=== PATIENT | female | born 1945 | race Caucasian/White ===

== ENCOUNTER → 2018-02-12 03:24 | Outpatient (CLI) | payer MEDICARE, SELFPAY ==
[2018-02-12 11:14] LABS: CREATININE 1.32 mg/dL (0.55-1.02); Cholesterol 198 mg/dL (50-200); Estimated GFR 39.34 (mL/min/1.73m2); HDL Cholesterol 46 mg/dL (40-60); LDL CHOLESTEROL 102 mg/dL (<100); Potassium 4.6 mmol/L (3.5-5.1); TSH (W/Ref FT4) 1.46 uIU/mL (0.358-3.74); Triglyceride 362 mg/dL (30-150)
== END ==
PROVIDERS: PCP Family Medicine; Visit Provider Family Medicine
DX: I10 Essential (primary) hypertension (principal); Z13.9 Encounter for screening, unspecified; R79.89 Other specified abnormal findings of blood chemistry
CPT/HCPCS: 36415; 80061; 83721; 82565; 84132; 84443

== ENCOUNTER → 2018-02-14 11:13 | Outpatient (CLI) | payer MEDICARE, SELFPAY ==
[2018-02-14 13:26] LABS: Abs Immature Grans 0.02 k/cumm (0.0-0.09); Absolute Basophil Count 0.02 k/cumm (0.0-0.2); Absolute Eosinophil Count 0.21 k/cumm (0.0-0.7); Absolute Lymphocyte Count 2.49 k/cumm (1.2-3.4); Absolute Monocyte Count 0.45 k/cumm (0.11-0.7); Absolute Neutrophil Count 5.45 k/cumm (1.2-6.7); Basophils % 0.2; Eosinophils % 2.4; HCT 36.4 % (36.0-46.0); HGB 12.3 g/dL (12.0-15.5); Immature Grans % 0.2; Lymphocytes % 28.8; Mean Corp. HGB Concentration 33.8 g/dL (32.0-36.0); Mean Corpuscular Hemoglobin 31.1 pg (27.0-33.0); Mean Corpuscular Volume 92.2 fL (80-95); Mean Platelet Volume 9.1 fL (8.0-11.0); Monocytes % 5.2; Neutrophils % 63.2; Platelet Count 386 x1000/uL (130-400); RBC 3.95 m/cumm (4.00-5.20); RBC Distribution Width 11.4 % (11.7-14.6); White Blood Cell Count 8.64 k/cumm (4.4-10.8)
[2018-02-14 13:40] LABS: ALT 19 U/L (12-78); AST 19 U/L (15-37); Albumin 4.3 g/dL (3.4-5.0); Alkaline Phosphatase 95 U/L (46-116); Bilirubin, Direct 0.12 mg/dL (0.00-0.20); Bilirubin, Total 0.3 mg/dL (0.2-1.0); C-Reactive Protein 0.28 mg/dL (0.0-0.3); Total Protein 7.3 g/dL (6.4-8.2)
[2018-02-14 14:29] LABS: ESR 20 MM/HR (0-30)
== END ==
PROVIDERS: PCP Family Medicine; Visit Provider Family Medicine
DX: R53.82 Chronic fatigue, unspecified (principal)
CPT/HCPCS: 36415; 80076; 85652; 85025; 86140

== ENCOUNTER 2019-02-26 01:43 | Outpatient (CLI) | payer OTHER, SELFPAY ==
[2019-02-26 13:07] LABS: CREATININE 1.12 mg/dL (0.55-1.02); Estimated GFR 47.43 (mL/min/1.73m2); Potassium 4.6 mmol/L (3.5-5.1); TSH (W/Ref FT4) 2.34 uIU/mL (0.36-3.74)
== END 2019-02-26 02:03 ==
PROVIDERS: PCP Family Medicine; Visit Provider Family Medicine
DX: I10 Essential (primary) hypertension (principal); E03.9 Hypothyroidism, unspecified
CPT/HCPCS: 36415; 82565; 84132; 84443

== ENCOUNTER 2019-10-23 16:15 | Emergency (ER) | payer OTHER, SELFPAY ==
[2019-10-23] VITALS (12 sets, daily range): BP systolic 130–157; BP diastolic 63–130; PULSE 75–95; RESP 12–21; TEMP 36.8–37.1; O2SAT 93–98
--- NOTE | 2019-10-23 16:30 | DI.CT_ITS ---
EXAM: CT CHEST PE CTA CLINICAL HISTORY: shortness of breath. TECHNIQUE: Imaging Protocol: Axial CT angiography was performed with multi-slice acquisition and mu lti-planar and/or 3D reconstructions. CONTRAST MATERIAL: Intravenous: Omnipaque 350 Contrast volume:67 mL COMPARISON: CHEST 2 VIEWS PA,LAT from 02/18/2014 FINDINGS: Pulmonary Arteries: No evidence of filling defect to suggest pulmonary emboli. Tracheobronchial tree: Patent where visualized. Mediastinum and Mary Jo: No dominant adenopathy or fluid collection. Pulmonary parenchyma: No focal consolidation. 6 mm solid pulmonary nodule seen in the right upper lo be (series 10, image 194), ground-glass 4 mm nodule seen in the right lower lobe (series 10, image 26 4). No architectural distortion. Pleura: No effusion or pneumothorax. Heart: The heart is not dilated. No coronary artery calcifications are seen. No pericardial effusion. Aorta: Thoracic aorta non-dilated. No evidence of dissection. Upper abdomen: 1.5 cm cyst in the superior pole of the right kidney. Bones: Old T12 compression deformity which appears stable compared to the chest x-ray from 02/18/2014. Degenerative changes throughout the thoracic spine. IMPRESSION: 1. No evidence of pulmonary embolus, thoracic aortic dissection or aneurysm. 2. Scattered pulmonary nodules measuring less than 6 mm. Follow-up non contrast CT scan in 6-12 tanner hs is recommended per the Fleischner society guidelines. DATA REPOSITORY: All CT scans at this facility are submitted to the National Radiology Data Registry (NRDR) Dose Index Registry (DIR) with the [employer] (ACR). RADIATION OPTIMIZATION: All CT scans at this facility use at least one of these dose optimization te chniques: automated exposure control; mA and/or kV adjustment per patient size (includes targeted exa ms where dose is matched to clinical indication); or iterative reconstruction.
--- NOTE | 2019-10-23 16:35 | ED.GENADUL_ITS ---
Discharge Plan Disposition Patient Disposition: HOME Condition: Stable Discharge Details Chief Complaint: SOB Clinical Impression: Bronchospasm, Pulmonary nodule, Shortness of breath, Hypokalemia Primary Care Provider: Andrzej You ED Provider: Farhan Cohen Home Meds and New Rx's Prescriptions: New prednisone 20 mg tablet 60 mg PO DAILY 4 Days Qty: 12 RF: 0 Continued carbidopa-levodopa 25-100 mg tablet 1 tab PO BID Qty: 180 RF: 3 ipratropium bromide 0.02 % solution 2.5 ml IH QID PRN (Reason: shortness of breath or wheezing) Qty: 120 RF: 2 albuterol sulfate 2.5 mg /3 mL (0.083 %) solution for nebulization 2.5 mg Inhalation Q 4 HR PRN Qty: 120 RF: 2 triamcinolone acetonide 15 GM cream 15 applic Topical BID Qty: 60 RF: 3 levothyroxine 88 mcg tablet 88 mcg PO DAILY Qty: 90 RF: 4 lisinopril-hydrochlorothiazide 20-25 mg tablet 1 tab PO DAILY Qty: 90 RF: 4 simvastatin 40 mg tablet 40 mg PO HS Qty: 90 RF: 4 fluoxetine [Prozac] 20 mg capsule 20 mg PO DAILY Qty: 90 RF: 4 doxycycline hyclate 100 mg tablet,delayed release (DR/EC) 100 mg PO BID Qty: 20 RF: 0 Discharge Instructions Instructions: Asthma (ED), Hypokalemia (ED) Additional Instructions: your cat scan showed pulmonary nodules, you should advised your primary care provider of this as you will need follow up imaging if you feel significantly more ill, more short of breath or high fevers return to the emergency department follow up with your primary care provider if not improved within a week self isolate until your covid19 (coronavirus test) comes back Medical Decision Making 74 yo female with hx of hld, asthma, who comes in with one month of feeling short of breath, cough and wheezing despite being on nebulizer treatments and doxycycline. Denies any travel, sick contacts or fevers. No chest pain or shortness of breath. She has wheezing in all lung payne on exam but is speaking in full sentences in no distress. Suspect asthma exacerbation but given one month of symptoms without improvement will evaluate for possible PE as well score is moderate. Given the cough and shortness of breath feel she should also be evaluated for covid19 and influenza. Has no chest pain or pressure so doubt PE. pt feeling much better and only has midl apical wheezing bilaterally and still has stable vital signs. CTA negative other than nodules and labs show hypokal emia otherwise unremarkable. Will prescribe short course of prednisone, return precautions given Differential Diagnosis Differential Diagnosis: asthma, covid19, influenza, pna, PE Medical Records Medical records reviewed: Yes I reviewed the patient's medical records. Imaging Data Radiologic Study: Attestation: I personally reviewed and interpreted this imaging study as follows: Imaging: CT Scan Radiologist's impression: 1. No acute abnormality in the chest. No pulmonary embolism. 2. Scattered solid and subsolid pulmonary nodules measuring up to 6 mm in the right upper lobe. Recommend follow-up noncontrast CT in 6-12 months per Fleischner society guidelines Lab Data Lab results reviewed: Yes I reviewed the patient's lab results. ECG Data Attestation: I personally reviewed and interpreted this ECG (s) as follows: Prior ECG tracings: not available for review Interpretation: sinus rhythm, rate of 87, pr 184, no acute st t wave ischemic findings HPI General Mode of arrival: ambulatory . Date/Time Provider Initiated Documentation: 10/23/19 16:16 . Limitations to Documentation: no limitations . Information obtained by: patient . History of Present Illness 74 year old F presents to the emergency department with the chief complaint of shortness of breath, described as moderate, and it has been constant. No relieving factors improve symptom(s), No exacerbating factors reported . Patient did receive the following treatments prior to arrival, none Related Data Home Medications Medication Instructions Recorded Confirmed triamcinolone acetonide 15 applic TOPICAL BID #60 g 02/14/18 10/23/19 carbidopa 25 mg-levodopa 100 mg 1 tab PO BID #180 tab-cap 03/19/19 10/23/19 tablet levothyroxine 88 mcg tablet 88 mcg PO DAILY #90 tab-cap 10/06/19 10/23/19 lisinopril 20 1 tab PO DAILY #90 tab-cap 10/06/19 10/23/19 mg-hydrochlorothiazide 25 mg tablet simvastatin 40 mg tablet 40 mg PO HS #90 tab-cap 10/06/19 10/23/19 fluoxetine 20 mg capsule 20 mg PO DAILY #90 tab-cap 10/08/19 10/23/19 doxycycline hyclate 100 mg 100 mg PO BID #20 tab 10/13/19 10/23/19 tablet,delayed release albuterol sulfate 2.5 mg INHALATION Q 4 HR PRN #120 10/22/19 10/23/19 vial ipratropium bromide 0.02 % 2.5 ml IH QID PRN #120 vial 10/22/19 10/23/19 solution for inhalation prednisone 60 mg PO DAILY 4 Days #12 tab 10/23/19 Previous Rx's Medication Instructions Recorded carbidopa 25 mg-levodopa 100 mg 1 tab PO BID #180 tab-cap 03/19/19 tablet levothyroxine 88 mcg tablet 88 mcg PO DAILY #90 tab-cap 10/06/19 lisinopril 20 1 tab PO DAILY #90 tab-cap 10/06/19 mg-hydrochlorothiazide 25 mg tablet simvastatin 40 mg tablet 40 mg PO HS #90 tab-cap 10/06/19 fluoxetine 20 mg capsule 20 mg PO DAILY #90 tab-cap 10/08/19 doxycycline hyclate 100 mg 100 mg PO BID #20 tab 10/13/19 tablet,delayed release albuterol sulfate 2.5 mg INHALATION Q 4 HR PRN #120 10/22/19 vial ipratropium bromide 0.02 % 2.5 ml IH QID PRN #120 vial 10/22/19 solution for inhalation prednisone 60 mg PO DAILY 4 Days #12 tab 10/23/19 Allergies Allergy/AdvReac Type Severity Reaction Status Date / Time No Known Allergies Allergy Unverified 10/23/19 16:26 General Stated Complaint: SOB AMBER: 3 Review of Systems All systems reviewed & are unremarkable except as noted in HPI and below Constitutional Constitutional: Denies chills, Denies fever(s) and Denies weakness Cardiovascular Cardiovascular: Denies chest pain Gastrointestinal Gastrointestinal: Denies abdominal pain, Denies nausea and Denies vomiting Musculoskeletal Musculoskeletal: Denies joint swelling Neurologic Neurologic: Denies weakness Psychiatric Psychiatric: Denies depression [facility] Medical History (Updated 10/23/19 @ 17:32 by Farhan Cohen MD) Bronchospasm (Acute) Cough present for greater than 3 weeks (Acute) Idiopathic Parkinson's disease (Acute) Surgical History Appendectomy Cholecystectomy Hysterectomy, Laproscopic partial; fibroid knee repair left nasal polypectomy x 2 PROCEDURES SPINAL STRUCT REPAIR NEC spinal stenosis Stent placement Social History Smoking/Tobacco Use Status: Former Tobacco Use Alcohol Intake: never Substance use type: does not use Do you feel safe at home: Yes Do you feel safe in your relationship?: Yes Exam Const General: no acute distress Orientation: alert HENMT Head: normal to inspection Ears: external ears normal General nose exam: external nose normal Mouth: moist mucous membranes Eyes General: appearance normal, both eyes and all related structures Neck Neck: normal visual inspection Resp Effort & Inspection: normal respiratory effort, able to speak in complete sentences and audible wheezes Cardio Rate: regular rate Skin General skin exam: no rashes or lesions noted Neuro General: patient alert and patient oriented x3 Extrem General: normal to inspection Psych Mental Status: mental status grossly normal Course Vital Signs Vital signs: Vital Signs Temperature 37.1 C 10/23/19 16:22 Pulse 95 H 10/23/19 16:22 Respiratory Rate 16 10/23/19 16:22 Blood Pressure 149/86 H 10/23/19 16:22 Pulse Oximetry 95 10/23/19 16:22 Temperature 37.1 C 10/23/19 16:22 Temperature Source Tympanic 10/23/19 16:22 Pulse 95 H 10/23/19 16:22 Respiratory Rate 16 10/23/19 16:26 Respiratory Effort 10/23/19 16:26 Respiratory Depth Normal 10/23/19 16:26 Respiratory Pattern Irregular 10/23/19 16:26 Blood Pressure 149/86 H 10/23/19 16:22 Pulse Oximetry 95 10/23/19 16:22 Oxygen Delivery Method Room Air 10/23/19 16:22 Oxygen Flow Rate 0 10/23/19 16:22 Pain Level 0 10/23/19 16:22
[2019-10-23 17:00] LABS: Abs Immature Grans 0.01 k/cumm (0.0-0.09); Absolute Basophil Count 0.05 k/cumm (0.0-0.2); Absolute Eosinophil Count 1.32 k/cumm (0.0-0.7); Absolute Lymphocyte Count 3.07 k/cumm (1.2-3.4); Absolute Monocyte Count 0.56 k/cumm (0.11-0.7); Absolute Neutrophil Count 4.38 k/cumm (1.2-6.7); Basophils % 0.5; Eosinophils % 14.1; HCT 34.2 % (36.0-46.0); HGB 11.7 g/dL (12.0-15.5); Immature Grans % 0.1 %; Lymphocytes % 32.7; Mean Corp. HGB Concentration 34.2 g/dL (32.0-36.0); Mean Corpuscular Hemoglobin 30.7 pg (27.0-33.0); Mean Corpuscular Volume 89.8 fL (80-95); Mean Platelet Volume 9.1 fL (8.0-11.0); Neutrophils % 46.6; Platelet Count 339 x1000/uL (130-400); RBC 3.81 m/cumm (4.00-5.20); RBC Distribution Width 12.1 % (11.7-14.6); White Blood Cell Count 9.39 k/cumm (4.4-10.8)
[2019-10-23 17:14] LABS: ALT 18 U/L (14-59); AST 18 U/L (15-37); Albumin 3.9 g/dL (3.4-5.0); Alkaline Phosphatase 89 U/L (46-116); Anion Gap 13.1 mmol/L (3-11); BUN 18 mg/dL (7-18); Bilirubin, Total 0.4 mg/dL (0.2-1.0); CO2 21.9 mmol/L (21.0-32.0); CREATININE 1.13 mg/dL (0.55-1.02); Chloride 101 mmol/L (98-107); Estimated GFR 46.82 (mL/min/1.73m2); Glucose 121 mg/dL (74-106); Magnesium 1.7 mg/dL (1.8-2.4); Sodium 136 mmol/L (136-145); Total Protein 6.9 g/dL (6.4-8.2)
[2019-10-23 17:17] LABS: NT-proBNP 335 pg/mL (<300); Troponin I < 0.05 ng/Ml (<0.06)
[2019-10-23 17:23] LABS: Procalcitonin < 0.1 ng/mL
--- NOTE | 2019-10-23 17:29 | DI.VRAD_ITS ---
PROCEDURE INFORMATION: Exam: CT Angiography Chest With Contrast Exam date and time: 10/23/2019 5:04 PM Age: 74 years old Clinical indication: Other: SOB TECHNIQUE: Imaging protocol: Computed tomographic angiography of the chest with intravenous contrast. 3D rendering: MIP and/or 3D reconstructed images were created by the technologist. Radiation optimization: All CT scans at this facility use at least one of these dose optimization techniques: automated exposure control; mA and/or kV adjustment per patient size (includes targeted exams where dose is matched to clinical indication); or iterative reconstruction. Contrast material: OMNIPAQUE 350; Contrast volume: 67 ml; Contrast route: IV; COMPARISON: CR CHEST 2 VIEWS PA,LAT 02/18/2014 8:42 AM FINDINGS: Pulmonary arteries: No pulmonary embolism. Aorta: The aorta is normal. Lungs: 6 mm solid pulmonary nodule in the central right upper lobe (series 10, image 194). Few additional scattered solid and subsolid nodules including 3 mm right upper lobe pulmonary nodule and 4 mm right lower lobe ground-glass nodule (series 10 image 172 and 264 respectively). Lungs are otherwise clear. Pleural space: Unremarkable. No pneumothorax. No pleural effusion. Heart: Unremarkable. No cardiomegaly. No pericardial effusion. Lymph nodes: Unremarkable. No enlarged lymph nodes. Bones/joints: T12 compression deformity with 3-4 mm bony retropulsion is grossly unchanged from prior 02/18/2014 radiograph when allowing for differences in technique. Soft tissues: Unremarkable. IMPRESSION: 1. No acute abnormality in the chest. No pulmonary embolism. 2. Scattered solid and subsolid pulmonary nodules measuring up to 6 mm in the right upper lobe. Recommend follow-up noncontrast CT in 6-12 months per Fleischner society guidelines. Dictated and Authenticated by: Luis Medina MD. Ordering:KAM Real MD
[2019-10-24 14:52] LABS: COVID-19 RT-PCR Result Negative (Negative)
== END 2019-10-23 18:10 | disposition home or self-care (01) ==
PROVIDERS: Emergency Provider Emergency Medicine; PCP Family Medicine
DX: J98.01 Acute bronchospasm (principal); R91.8 Other nonspecific abnormal finding of lung field; E87.6 Hypokalemia; G20 Parkinson's disease
CPT/HCPCS: 71275; 80053; 84145; 87449; 93005; 99284; U0003; 83735; 83880; 84484; 85025; 93010

== ENCOUNTER 2020-04-06 09:16 | Outpatient (CLI) | payer OTHER, SELFPAY ==
[2020-04-06 12:31] LABS: HCT 39.4 % (36.0-46.0); MCH 30.2 pg (27.0-33.0); MCV 91.4 fL (80-95); MPV 9.7 fL (8.0-11.0); Platelet Count 336 10^3/uL (130-400); RBC 4.31 10^6/uL (3.93-5.22); RDW 11.4 % (11.7-14.6); RDW-SD 38.2 fL; WBC 9.08 10^3/uL (4.4-10.8)
[2020-04-06 12:32] LABS: Anion Gap 12.1 mmol/L (3-11); BUN 18 mg/dL (7-18); CO2 24.9 mmol/L (21.0-32.0); CREATININE 1.27 mg/dL (0.55-1.02); Calcium 9.7 mg/dL (8.5-10.1); Chloride 102 mmol/L (98-107); Glucose 91 mg/dL (74-106); Potassium 4.2 mmol/L (3.5-5.1); Sodium 139 mmol/L (136-145)
== END 2020-04-06 09:36 ==
PROVIDERS: PCP Family Medicine; Visit Provider Family Medicine
DX: E87.1 Hypo-osmolality and hyponatremia (principal); R53.83 Other fatigue
CPT/HCPCS: 80048; 85027

== ENCOUNTER 2020-08-13 08:33 | Outpatient (CLI) | payer OTHER, SELFPAY ==
[2020-08-13 12:53] LABS: Abs Immature Grans 0.02 10^3/uL (0.0-0.06); Absolute Basophil Count 0.04 10^3/uL (0.0-0.2); Absolute Eosinophil Count 0.31 10^3/uL (0.0-0.7); Absolute Lymphocyte Count 2.03 10^3/uL (1.2-3.4); Absolute Monocyte Count 0.47 10^3/uL (0.1-0.8); Absolute Neutrophil Count 5.91 10^3/uL (1.2-6.7); Basophils % 0.5; Eosinophils % 3.5; HCT 40.9 % (36.0-46.0); HGB 13.7 g/dL (11.2-15.7); Immature Grans % 0.2; Lymphocytes % 23.1; MCH 30.7 pg (27.0-33.0); MCHC 33.5 % (32.0-36.0); MCV 91.7 fL (80-95); MPV 9.6 fL (8.0-11.0); Monocytes % 5.4; Neutrophils % 67.3; Nucleated RBC 0 %; Platelet Count 373 10^3/uL (130-400); RBC 4.46 10^6/uL (3.93-5.22); RDW 11.2 % (11.7-14.6); RDW-SD 37.4 fL; WBC 8.78 10^3/uL (4.4-10.8)
[2020-08-13 13:01] LABS: TSH (W/Ref FT4) 0.65 uIU/mL (0.36-3.74)
== END 2020-08-13 08:34 | disposition home or self-care (01) ==
LOC: LOS 08:33
PROVIDERS: PCP Family Medicine; Visit Provider Family Medicine
DX: E03.9 Hypothyroidism, unspecified (principal); R53.83 Other fatigue
CPT/HCPCS: 36415; 84443; 85025

== ENCOUNTER 2020-09-07 01:35 | Outpatient (CLI) | payer OTHER, SELFPAY ==
--- NOTE | 2020-09-07 06:45 | DI.CT_ITS ---
EXAM: CT CHEST WO CLINICAL HISTORY: reassess lung nodules seen 10/[address],r91.1 TECHNIQUE: CT examination of the chest was performed without contrast administration. COMPARISON: CR CHEST 2 VIEWS PA,LAT from 02/18/[address] CHEST PE CTA from 10/23/2019 FINDINGS: Images obtained through the upper abdomen show unremarkable appearance of visualized portions of the liver and spleen. Note is made of prior cholecystectomy and a nonobstructing left renal calculus. There is no mediastinal or hilar adenopathy. Mediastinal vascular structures appear intact by noncon trast criteria. Tracheobronchial tree appears intact. No pleural effusion or pleural-based mass. The current examination is compared with prior chest CT October 2019. There are innumerable new areas of scattered pulmonary ground-glass and consolidative opacities seen in all pulmonary lobes which wer e not present on prior scan. A couple of 6 millimeter right upper lobe intrapulmonary nodules seen o n the prior study are unchanged. IMPRESSION: Innumerable new randomly distributed ground-glass and consolidative pulmonary opacities, differential diagnosis includes infectious process or inflammatory process with metastatic neoplasm being less li colette. Please correlate clinically. RADIATION DOSE DELIVERED: LINK-TO-SR Total DLP 601.82mGy.cm Total DLP
--- NOTE | 2020-09-07 06:45 | DI.MAMMO_ITS ---
EXAM: MG MAMMO DIAGNOSTIC BI CLINICAL HISTORY: left UOQ breast mass x 5 weeks,n63.20 TECHNIQUE: Mammograms were interpreted according to the usual protocol including computer analysis w [employer] CAD system, tomosynthesis and C-view imaging. COMPARISON: FINDINGS: Mammogram with additional mammographic views of the left breast and left breast ultrasound are interp reted in conjunction. Patient has a palpable area of abnormality of the upper outer quadrant of the left breast which is near the skin surface. Mammogram does not show a convincing mass, either associ ated with the palpable area in question or elsewhere in either breast. The breasts are of moderate d ensity. No significant change from prior mammogram of 2014. No clumped microcalcification identified in either breast. Breast ultrasound of the upper outer quadrant of the left breast shows mildly hyperechoic well-circum scribed 7 millimeter nodule corresponding to the palpable abnormality, this may represent a small lym ph node. Other etiologies not entirely excluded. Malignancy not absolutely excluded but unlikely. IMPRESSION: No specific evidence of malignancy at this time. A follow-up unilateral left breast mammogram and le ft breast ultrasound is recommended in 6 months to re-evaluate the probably benign intra mammary nodu le as described above. BI-RADS Category 3 - 6 month - Probably Benign Finding: Recommend follow-up mammography and ultrasoun d in 6 months Breast Density - Category B - Scattered areas of fibroglandular density
== END 2020-09-07 01:55 ==
PROVIDERS: PCP Family Medicine; Visit Provider Family Medicine
DX: R91.8 Other nonspecific abnormal finding of lung field (principal); N63.21 Unspecified lump in the left breast, upper outer quadrant
CPT/HCPCS: 71250; 76642; 77062; 77066; G0279

== ENCOUNTER 2020-10-18 13:37 | Outpatient (REF) | payer OTHER, SELFPAY ==
[2020-11-15 09:33] LABS: Fungus Smear No Fungi Seen
== END 2020-10-18 13:38 | disposition home or self-care (01) ==
LOC: LBN 13:37
PROVIDERS: PCP Family Medicine; Visit Provider Family Medicine
DX: R91.8 Other nonspecific abnormal finding of lung field (principal); R05 Cough; R09.3 Abnormal sputum
CPT/HCPCS: 87102; 87116; 87206; 87070; 87205

== ENCOUNTER 2021-01-19 03:24 | Outpatient (CLI) | payer OTHER, SELFPAY ==
[2021-01-19 12:20] LABS: ESR 13 mm/hr (0-30)
[2021-01-19 12:27] LABS: Anion Gap 11.3 mmol/L (3-11); BUN 21 mg/dL (7-18); C-Reactive Protein 0.29 mg/dL (0.0-0.3); CO2 25.7 mmol/L (21.0-32.0); CREATININE 1.2 mg/dL (0.55-1.02); Calcium 9.3 mg/dL (8.5-10.1); Chloride 105 mmol/L (98-107); Estimated GFR 43.56 (mL/min/1.73m2); Glucose 89 mg/dL (74-106); Potassium 4.4 mmol/L (3.5-5.1); Sodium 142 mmol/L (136-145)
[2021-01-20 15:06] LABS: ANA Interpretation Positive (Negative); ANA Titer Pattern 1:320 Homogeneous
== END 2021-01-19 03:25 | disposition home or self-care (01) ==
LOC: LOS 03:24
PROVIDERS: PCP Family Medicine; Visit Provider Family Medicine
DX: E87.1 Hypo-osmolality and hyponatremia (principal); M25.59 Pain in other specified joint; R41.89 Other symptoms and signs involving cognitive functions and awareness; M19.90 Unspecified osteoarthritis, unspecified site
CPT/HCPCS: 36415; 80048; 85652; 86038; 86140

== ENCOUNTER 2021-01-25 02:20 | Outpatient (CLI) | payer OTHER, SELFPAY ==
[2021-01-25 21:41] LABS: Rheumatoid Factor 15.8 IU/mL (<12.0)
[2021-01-26 09:14] LABS: Cyclic Citrullinated Peptide <2.5 U/mL (<5.0)
[2021-01-26 10:21] LABS: IgA 159 mg/dL (85-499); IgG 875 mg/dL (610-1,616); IgM 40 mg/dL (35-242)
[2021-01-26 12:42] LABS: IgE 8 IU/mL (<158)
[2021-01-27 11:00] LABS: dsDNA Ab, IgG 12.5 IU/mL (<30.0)
[2021-01-27 12:19] LABS: SS-B (La) Ab, IgG 1.3 Units (<20.0)
[2021-01-27 14:42] LABS: Scl 70 Antibodies, IgG <0.2 U
[2021-01-31 11:38] LABS: Misc Referral (MAYO) See Comments
[2021-02-04 00:26] LABS: Anti-IgA <99 U/mL (<99)
[2021-02-14 12:16] LABS: Misc Referral (MAYO) See Comments
== END 2021-01-25 02:21 | disposition home or self-care (01) ==
LOC: LOS 02:20
PROVIDERS: PCP Family Medicine; Visit Provider Student in an Organized Health Care Education/Training Program
DX: J84.9 Interstitial pulmonary disease, unspecified (principal); R76.8 Other specified abnormal immunological findings in serum
CPT/HCPCS: 36415; 82784; 83516; 83520; 86200; 86235; 86617; 87449; 82785; 82787; 86225; 86431; 87385

== ENCOUNTER 2021-02-01 02:12 | Outpatient (CLI) | payer OTHER, SELFPAY ==
--- NOTE | 2021-02-01 07:30 | DI.CT_ITS ---
Exam(s) CT CHEST WO EXAM: CT CHEST WO CLINICAL HISTORY: Follow up for bilateral GGO on last chest CT,interstitial lung disease.j84.. TECHNIQUE: Imaging protocol: Axial computed tomography images were obtained and coronal and sagittal reformatted images were created and reviewed. COMPARISON: CT CT CHEST WO from 09/07/2020 FINDINGS: Tracheobronchial tree: Patent where visualized. Pulmonary parenchyma: There are persistent diffuse bilateral ground-glass opacities in the lungs. Th e findings appears stable. No new focal areas of consolidation are seen. No architectural distortio n. Mediastinum and Mary Jo: No dominant adenopathy or fluid collection. Pleura: No effusion or pneumothorax. Heart: The heart is not dilated. No coronary artery calcifications are seen. No pericardial effusion. Calcification of the mitral annulus. Aorta: Thoracic aorta non-dilated. Mild atherosclerosis. Upper abdomen: Status post cholecystectomy. Nonobstructing 3 mm left renal stone. Stable cyst in t he upper pole of the right kidney. No follow-up is recommended. Lymph nodes: Within normal limits. Soft tissues: Unremarkable. Bones:Degenerative changes in the spine. Old T12 compression fracture deformity. IMPRESSION: Stable bilateral diffuse ground-glass opacities in the lungs. Differential considerations include op portunistic and non operative 10 is sick infectious processes, chronic interstitial disease such as i nterstitial pneumonia, hypersensitivity pneumonitis or neoplasm. RADIATION DOSE DELIVERED: 535.03mGy.cm Total DLP 535.03mGy.cm Total DLP DATA REPOSITORY: All CT scans at this facility are submitted to the National Radiology Data Registry (NRDR) Dose Index Registry (DIR) with the [employer] (ACR). RADIATION OPTIMIZATION: All CT scans at this facility use at least one of these dose optimization te chniques: automated exposure control; mA and/or kV adjustment per patient size (includes targeted exa ms where dose is matched to clinical indication); or iterative reconstruction.
== END 2021-02-01 02:32 ==
PROVIDERS: PCP Family Medicine; Visit Provider Student in an Organized Health Care Education/Training Program
DX: R91.8 Other nonspecific abnormal finding of lung field (principal); J84.9 Interstitial pulmonary disease, unspecified
CPT/HCPCS: 71250

== ENCOUNTER 2021-02-07 02:04 | Outpatient (CLI) | payer OTHER, SELFPAY ==
[2021-02-07 12:24] LABS: Source Nasal/Nares
[2021-02-07 15:07] LABS: COVID-19 PCR Negative (Negative)
== END 2021-02-07 02:05 | disposition home or self-care (01) ==
LOC: LBO 02:04
PROVIDERS: PCP Family Medicine; Visit Provider Student in an Organized Health Care Education/Training Program
DX: Z20.822 Contact with and (suspected) exposure to COVID-19 (principal); Z01.818 Encounter for other preprocedural examination
CPT/HCPCS: 87635

== ENCOUNTER 2021-02-09 07:19 | Day surgery (SDC) | payer OTHER, SELFPAY ==
[2021-02-09] VITALS (10 sets, daily range): BP systolic 120–161; BP diastolic 54–82; PULSE 72–84; RESP 13–23; TEMP 36.1–36.5; O2SAT 93–99; BMI 30.4
--- NOTE | 2021-02-09 06:36 | ANES.PREOP_ITS ---
General Info Date of Service Date Performed: 02/09/21 Height: 5 ft 1 in Weight: 73.085 kg Body Mass Index (BMI): 30.4 Surgical Procedure: Operation Date: 02/09/21 09:10 Proposed Procedures Side Surgeon p Bronchoscopy Tara Yanez MD Meds Allergies and Home Medications Allergies Allergy/AdvReac Type Severity Reaction Status Date / Time prednisone AdvReac pounding Verified 02/09/21 07:30 headache Home Medication Medication Instructions Recorded albuterol sulfate 2.5 mg INHALATION Q 4 HR PRN #120 10/22/19 vial ipratropium bromide 0.02 % 2.5 ml IH QID PRN #120 vial 10/22/19 solution for inhalation budesonide 0.5 mg/2 mL suspension 0.5 mg IH BID #360 ml 11/25/19 for nebulization acetaminophen 300 mg-codeine 30 mg 1 tab PO TID PRN #10 tab-cap 04/06/20 tablet levocetirizine 5 mg tablet 5 mg PO DAILY PRN #90 tab 06/01/20 carbidopa 25 mg-levodopa 100 mg 1 tab PO QHS #90 tab-cap 08/13/20 tablet fluoxetine 20 mg capsule 20 mg PO DAILY #90 tab-cap 08/13/20 fluticasone propionate 50 1 spray INTRANASAL Q12H PRN ml 08/13/20 mcg/actuation nasal spray,suspension triamcinolone acetonide 0.1 % 15 applic TOPICAL BID PRN #60 g 08/13/20 topical cream levothyroxine 88 mcg tablet 88 mcg PO DAILY #90 tab-cap 08/16/20 lisinopril 20 1 tab PO DAILY #90 tab-cap 11/17/20 mg-hydrochlorothiazide 25 mg tablet simvastatin 40 mg tablet 40 mg PO HS #90 tab-cap 11/17/20 Current Visit Medications: Current Medications Generic Name Dose Route Start Last Admin Trade Name Freq PRN Reason Stop Dose Admin Ringer's Solution 1,000 mls @ 30 mls/hr 02/09/21 06:00 IV 03/10/21 23:59 INFUSION JANETTE IV Miscellaneous Supplies 1 each 02/09/21 06:00 Iv Access IV 03/10/21 23:59 DIRECTED JANETTE Sodium Chloride 0 ml 02/09/21 06:00 Normal Saline Flush 10 Ml Syr IV 03/10/21 23:59 PRN PRN Sodium Chloride 0 ml 02/09/21 06:00 Normal Saline 10 Ml Vial IJ 03/10/21 23:59 DIRECTED PRN Sterile Water 0 ml 02/09/21 06:00 Water,Injection,Sterile 10 Ml Vial IJ 03/10/21 23:59 DIRECTED PRN PFSH Active Problems Active Problems: Problem Status Onset Code Breast lump in upper outer quadrant N63.0 Facial cellulitis L03.211 Facial rash R21 [address] R93.89 Asthma J45.909 ILD (interstitial lung disease) J84.9 Arthralgia M25.50 Chronic pain syndrome 04/10/17 G89.4 Fatigue R53.83 Nasal congestion R09.81 Periorbital dermatitis L30.9 Night sweats R61 Left breast lump N63.20 Ground glass opacity present on imaging of lung R91.8 Lung nodules R91.8 Bronchospasm J98.01 Cough present for greater than 3 weeks R05 Idiopathic Parkinson's disease G20 Medical History Medical History Arthralgia Bronchospasm Chronic pain syndrome (04/10/17) Cough present for greater than 3 weeks Fatigue Ground glass opacity present on imaging of lung Idiopathic Parkinson's disease Left breast lump Lung nodules Nasal congestion Night sweats Periorbital dermatitis Surgical History Surgical History Appendectomy Cholecystectomy History of sinus surgery Per pt. stated she doesn't know what it is called but stated they went in and made windows, it was one in the early Hysterectomy, Laproscopic partial; fibroid knee repair left nasal polypectomy x 2 PROCEDURES SPINAL STRUCT REPAIR NEC spinal stenosis Stent placement per pt. denies Tobacco Smoking/Tobacco Use Status: Former Tobacco Use Passive smoking exposure: Yes Alcohol Alcohol Intake: never Substance Use Substance use: Never Substance use type: does not use Vital Signs and Lab Results Vital Signs Most Recent Vital Signs in EMR: Temp Pulse Resp BP Pulse Ox 36.3 C L 78 18 122/82 97 02/09/21 07:30 02/09/21 07:30 02/09/21 07:30 02/09/21 07:30 02/09/21 07:30 Lab Results Blood Type / Crossmatch: No Data to Display Complete Blood Count: No Data to Display Complete Metabolic Panel: Sodium Level 142 mmol/L (136-145) 01/19/21 08:42 01/19/21 Potassium Level 4.4 mmol/L (3.5-5.1) 01/19/21 08:42 01/19/21 Chloride Level 105 mmol/L (98-107) 01/19/21 08:42 01/19/21 Carbon Dioxide Level 25.7 mmol/L (21.0-32.0) 01/19/21 08:42 01/19/21 Blood Urea Nitrogen 21 mg/dL (7-18) H 01/19/21 08:42 01/19/21 Creatinine 1.2 mg/dL (0.55-1.02) H 01/19/21 08:42 01/19/21 Estimated GFR/1.73 m2 43.56 (mL/min/1.73m2) 01/19/21 08:42 01/19/21 Calcium Level 9.3 mg/dL (8.5-10.1) 01/19/21 08:42 01/19/21 Glucose Level 89 mg/dL (74-106) 01/19/21 08:42 01/19/21 C-Reactive Protein 0.29 mg/dL (0.0-0.3) 01/19/21 08:42 01/19/21 Liver Function Panel: No Data to Display Coagulation Panel: No Data to Display Cardiac Panel: No Data to Display Arterial Blood Gas: No Data to Display Venous Blood Gas: No Data to Display Pancreas Panel: No Data to Display Thyroid Panel: No Data to Display Infectious Disease: Coronavirus (COVID-19)(PCR) Negative (Negative) 02/07/21 09:09 02/07/21 Coronavirus 2019 Source Nasal/Nares 02/07/21 09:09 02/07/21 Blood Cultures: 2 No Data to Display Toxicology Panel: No Data to Display Imaging and Studies Imaging and Studies CT Summary: 09/2020: stable bilateral diffuse ground glass opacities in the lungs. Anesthesia Assessment and Plan Anesthesia History Personal History: No History of Anesthesia Complications Family History: No Family History of Anesthesia Complications Exercise Tolerance Exercise Tolerance: Metabolic Equivalents>4 Cardiac & Pulmonary Exam Cardiac Exam: Normal S1/S2 Heart Sounds Pulmonary Exam: Clear Bilateral Breath Sounds Airway Exam Known Difficult Airway: No Mallampati Class: 3 Mouth Opening: Normal (> 3cm) Thyromental Distance: Greater than 3 cm Neck Range of Motion: Limited ROM Neck Circumference: Normal Teeth Condition: Normal Dentition and Other (prominent front teeth) ASA Classification ASA Score: ASA 3 Emergency Case?: No NPO Status NPO Status: NPO Clears >2 hours, Solids >8 hours Anesthesia Plan Resuscitation Status: Full Code Anesthesia Technique: General Anesthesia Airway Planned: Endotracheal Tube Monitors Used: Standard Monitors Preoperative Comments:: 75 yo female for bronch r/t ILD, 6 mm RUL nodule. sig PMHX asthma (albut/budes, rarely uses her albut), hypothyroid (stable on her levothyroxine), HTN (lisinopril/hydrochlorothiazide, home BP ~same as todays), Parkinson's (stable, on every night leva/carba) Previous Mac 3 grade 1 and grade 2, easy mask.
[2021-02-09] MEDS: Lactated Ringers 1,000 ML 30 ML IV (08:00)
--- NOTE | 2021-02-09 08:15 | DI.RAD_ITS ---
Exam(s) XR FLOURO OR C-ARM <1 HR EXAM: XR FLOURO OR C-ARM <1 HR CLINICAL HISTORY: Abnormal chest CT, ILD. TECHNIQUE: 2D and realtime digital imaging was performed. CONTRAST MATERIAL: Oral barium Oral water soluble contrast was administered. COMPARISON: No exams were available for comparison FINDINGS: Fluoroscopy was provided during fluoroscopic C-arm procedure. See procedure report for details. IMPRESSION: Total fluoroscopy time 50.9 seconds Cumulative dose 7.11mGy RADIATION DOSE DELIVERED: peggy Caceres= mGy
[2021-02-09] MEDS: Lidocaine 1% Multi-Dose 50 ML VIAL (09:43)
--- NOTE | 2021-02-09 09:50 | PAPNONF_PTH ---
PATIENT: Cece Olivera LOC: [facility] U#:[id number] AGE/SX: 75/F ROOM: RE02/09/[address]: Tara Yanez MD : 1945 BED: DIS: 02/09/2021 SPEC #: [id number] RECD: 02/09/21 13:09 STATUS: ALEX REQ #: [id number] ROBERTA: 02/09/21 09:[address]: Tara Yanez DEPT: [facility] Cytology RECD BY: Lisa Emmanuel ENTERED: 02/09/21 13:10 SP TYPE: PAPBAYRON OSEI DR: Andrzej You MD Tissues: 1 - BODY FLUID CYTO(NOT S/U/N/EM)[facility] Procedures: BODY FLUID CYTO(NOT SPU/UR/NIP/ENDOM)[facility] Comments: [id number] (TOTAL VOLUME = 40 ml's, SENT FRESH)
--- NOTE | 2021-02-09 09:57 | BRONCH_PTH ---
PATIENT: Cece Olivera LOC: [facility] U#:[id number] AGE/SX: 75/F ROOM: RE02/09/[address]: Tara Yanez MD : 1945 BED: DIS: 02/09/2021 SPEC #: [id number] RECD: 02/09/21 13:02 STATUS: ALEX REDebbi #: [id number] ROBERTA: 02/09/21 09:[address]: Tara Yanez DEPT: Surgical Specimen RECD BY: Lisa Emmanuel ENTERED: 02/09/21 13:04 SP TYPE: Bronch Bx OTHR DR: Andrzej You MD Tissues: 1 - BRONCHUS BIOPSY 2 - BRONCHUS BIOPSY Procedures: GROSS AND MICRO LEVEL 4 Comments: [id number]
--- NOTE | 2021-02-09 10:00 | DI.RAD_ITS ---
Exam(s) XR PORTABLE CHEST AP EXAM: XR PORTABLE CHEST AP CLINICAL HISTORY: Abnormal chest CT, ASTHMA, ILD. TECHNIQUE: 2D digital imaging was performed. COMPARISON: CR CHEST 2 VIEWS PA,LAT from 02/18/2014 FINDINGS: Heart size is normal. The mediastinum is not widened. Chest leads in place. COPD findings. Left lung is clear. Mild increased markings in the right upper lobe. No pleural effusions. No pulm onary edema. IMPRESSION: Mild increased markings in the right upper lobe, probably mild infiltrate. No pleural effusions. No pulmonary edema. Sign rib DATA REPOSITORY: RADIATION DOSE DELIVERED: All CT scans at this facility use at least one of these dose optimization techniques: automated exposure control; mA and/or kV adjustment per patient size (includes targeted e xams where dose is matched to clinical indication); or iterative reconstruction.
--- NOTE | 2021-02-09 10:39 | W.PM.DSUDISC ---
Discharge Plan Disposition Patient Disposition: HOME Condition: Good Discharge Details Reason For Visit: Bronchoscopy Attending Provider: Tara Yanez Primary Care Provider: Andrzej You Home Meds and New Rx's Prescriptions: No Action ipratropium bromide 0.02 % solution 2.5 ml IH QID PRN (Reason: shortness of breath or wheezing) Qty: 120 RF: 2 albuterol sulfate 2.5 mg /3 mL (0.083 %) solution for nebulization 2.5 mg Inhalation Q 4 HR PRN Qty: 120 RF: 2 acetaminophen-codeine 300-30 mg tablet 1 tab PO TID PRN (Reason: pain) Qty: 10 RF: 0 fluticasone propionate [Flonase Allergy Relief] 50 mcg/actuation spray,suspension 1 spray intranasal Q12H PRNRF: 0 carbidopa-levodopa 25-100 mg tablet 1 tab PO QHS Qty: 90 RF: 3 fluoxetine [Prozac] 20 mg capsule 20 mg PO DAILY Qty: 90 RF: 4 levothyroxine 88 mcg tablet 88 mcg PO DAILY Qty: 90 RF: 4 levocetirizine [Xyzal] 5 mg tablet 5 mg PO DAILY PRN (Reason: allergy symptoms) Qty: 90 RF: 1 budesonide 0.5 mg/2 mL suspension for nebulization 0.5 mg IH BID Qty: 360 RF: 3 triamcinolone acetonide 0.1 % cream 15 applic Topical BID PRNQty: 60 RF: 3 lisinopril-hydrochlorothiazide 20-25 mg tablet 1 tab PO DAILY Qty: 90 RF: 4 simvastatin 40 mg tablet 40 mg PO HS Qty: 90 RF: 4 Discharge Instructions Stand Alone Forms: DSU Bronchoscopy Post-Op Activity:: Activity as Tolerated Diet:: As Tolerated Discharge Orders Discharge Orders: Discharge Order (Routine); Ordered 02/09/21 Ordered By: Tara Yanez DS: Diagnosis Discharge Diagnosis (1) ILD (interstitial lung disease): Status: Acute
--- NOTE | 2021-02-09 10:52 | RESPIRATORY ---
02/09/21- Assisted in Bronchoscopy with Right Sided BAL and Left Sided transbronchial biopsies.120 ml's of saline with 40ml's return. 2ml's of 1% Lidocaine given.
--- NOTE | 2021-02-09 10:53 | W.ANESPOSTOP ---
Postoperative Evaluation Date, Time and Location Date Performed: 02/09/21 Time Performed: 10:53 Patient Location: PACU Vital Signs Most Recent Imported Vital Signs: Most Recent Vital Signs Temp Pulse Resp BP Pulse Ox 36.1 C L 80 14 132/54 L 99 02/09/21 10:28 02/09/21 10:28 02/09/21 10:28 02/09/21 10:02/09/21 10:28 Assessment Mental Status: Awake (Alert & Oriented to Patient Baseline) Airway and Respiratory Function: Patent airway with normal (patient baseline) respiratory exam Cardiovascular Function: Hemodynamically Stable Hydration Status: Adequately Hydrated Nausea & Vomiting: Active Nausea or Vomiting Present (Treated with additional dose of zofran) Nausea and Vomiting Management: Nausea and vomiting active, being addressed with medication Pain: Pt. Denies Any Pain Peripheral Nerve Block: Patient did not receive a nerve block
--- NOTE | 2021-02-09 10:56 | W.PM.OP ---
Date of service: 02/09/21 Time of Service: 09:30 Operative Note Operative Note Refer to Anesthesia Record for General Anesthesia documentation Bronchoscopy Date:02/09/21 Time:0900 Indication:Abnormal chest CT Procedure performed: Flexible bronchoscopy with BAL and transbronchial biopsies Sedation plan: General Anesthesia Medications used: 2cc of 1% Lidocaine Informed consent was obtained after the risks and benefits or the procedure were discussed. The patient was anesthesized and intubated by anesthesia. A proper and complete OR compliant time out was performed. The therapeutic 6.2mm Olympus bronchoscope was inserted through the endotracheal tube. The bronchoscope was inserted into the airways, where 2cc in total of 1% topical lidocaine was used the anesthetize the airways. The trachea was midline and without lesion or injury. The mucosa appeared normal and there were no signs of tracheomalacia. The oksana was sharp. All bronchial subsegments were visualized within each lobe and showed normal tissue with no lesions, erythema or secretions. A bronchoalveolar lavage was performed in the RUL. A total of 120cc of saline was administered with a return of 40cc. The fluid was slightly cloudy in appearance. The bronchoscope was then directed to the left lower lobe where 2 transbronchial biopsies were performed for fluoroscopic guidance with no evidence of bleeding. The bronchoscope was then directed to the left lingula where 3 transbronchial biopsies were performed under fluoroscopic guidance with minimal bleeding after the third biopsy that was stopped up with 20 cc of cold saline. Investigation after biopsies were performed showed no further bleeding. A final fluoroscopic image was shot that did not show an obvious pneumothorax. The bronchoscope was then removed and the case terminated. The patient was taken to PACU in stable condition. Samples collected:RUL BAL, LLL TBBx, Lingula TBBx Testing ordered:surgical pathology, cultures of BAL, cell diff of BAL, flow cytometry of BAL, cytology of BAL Complications:None CXR performed in PACU. No visible pneumothorax on my read, but will await radiological read. In PACU patient is experiencing significant nausea. Patients partner was called by me to discuss the case. Tara Yanez MD Pulmonary & Critical Care Medicine
[2021-02-11 10:12] LABS: Gram Smear Result Neutrophils Present
[2021-02-16 12:59] LABS: Misc Referral (UVM) See Comments
[2021-03-09 09:27] LABS: Fungus Smear No Fungi Seen
== END 2021-02-09 12:05 | disposition home or self-care (01) ==
PROVIDERS: PCP Family Medicine; Visit Provider Student in an Organized Health Care Education/Training Program
PROC: 0BJ08ZZ Inspection of Tracheobronchial Tree, Via Natural or Artificial Opening Endoscopic (ICD-10-PCS; CPT 31622; principal; 2021-02-09 09:00)
DX: J84.9 Interstitial pulmonary disease, unspecified (principal); R91.8 Other nonspecific abnormal finding of lung field
CPT/HCPCS: 31628; 31624; 31632; 76000; 87070; 87102; 87116; 87205; 87206; 88305; 71045; 88104; J1100; J2001; J2370; J2405; J2704

== ENCOUNTER 2021-12-15 02:14 | Outpatient (CLI) | payer MEDICARE, SELFPAY ==
[2021-12-15 11:15] LABS: CREATININE 1.1 mg/dL (0.55-1.02); Estimated GFR 48.04 (mL/min/1.73m2); TSH (W/Ref FT4) 0.32 uIU/mL (0.36-3.74)
[2021-12-15 11:33] LABS: FREE T4 1.31 ng/dL (0.76-1.46)
== END 2021-12-15 02:15 | disposition home or self-care (01) ==
LOC: LOS 02:15
PROVIDERS: PCP Family Medicine; Visit Provider Family Medicine
DX: I10 Essential (primary) hypertension (principal); E03.9 Hypothyroidism, unspecified
CPT/HCPCS: 36415; 82565; 84132; 84439; 84443

== ENCOUNTER → 2022-01-10 00:54 | Outpatient (CLI) | payer MEDICARE, SELFPAY ==
--- NOTE | 2022-01-10 07:30 | DI.CT_ITS ---
Exam(s) CT CHEST WO EXAM: CT CHEST WO CLINICAL HISTORY: recheck ground glass opacities,interstitial lung disease,j84.9. TECHNIQUE: Multi planar reconstructions were performed. CONTRAST MATERIAL: None COMPARISON: CT CT CHEST WO from 02/01/2021 FINDINGS: CHEST: LUNGS: There are persistent bilateral infiltrates, with minimal change from the CT scan performed 1 y ear ago. No significant improvement. No pleural effusions. No obvious focal anomalies evident in t he trachea and mainstem bronchi. No bronchiectasis. MEDIASTINUM: There is no obvious hilar nor mediastinal adenopathy. Visualized thyroid unremarkable.No obvious axillary adenopathy CARDIAC: Heart size is normal. There is no pericardial effusion.Caliber of the thoracic aorta is wit hin normal limits. Calcified mitral valve is again noted. VISUALIZED UPPER ABDOMEN:No significant adrenal masses. There is a small cyst in the superior pole o f the right kidney measuring 1.5 cm, unchanged. There is also an unchanged nonobstructive calculus i n the left kidney. Spleen size normal. OSSEOUS: No significant osseous lesions.Compression fracture of T12 is again noted.. IMPRESSION: 1. No significant improvement in the bilateral lung infiltrates when compared to CT scan of January 2021 . 2. There are no pleural effusions nor intrathoracic adenopathy evident. 3. No intrathoracic adenopathy evident. RADIATION DOSE DELIVERED: 560.25mGy.cm Total DLP DATA REPOSITORY: All CT scans at this facility are submitted to the National Radiology Data Registry (NRDR) Dose Index Registry (DIR) with the [employer] ([employer]). RADIATION OPTIMIZATION: All CT scans at this facility use at least one of these dose optimization te chniques: automated exposure control; mA and/or kV adjustment per patient size (includes targeted exa ms where dose is matched to clinical indication); or iterative reconstruction.
--- NOTE | 2022-01-10 07:30 | DI.MAMMO_ITS ---
Exam(s) MG MAMMO SCREENING 60 MIN DUR EXAM: MG MAMMO SCREENING 60 MIN DUR CLINICAL HISTORY: breast cancer screening,z12.31. TECHNIQUE: Bilateral full field digital CC and MLO mammographic images were obtained with 3D tomosyn thesis and utilizing computer aided detection (CAD). COMPARISON: Prior mammograms were reviewed, the most recent being September 2020. Ultrasound examinatio n of September 1020 was also reviewed. FINDINGS: There has been no significant change in the appearance and distribution of the fibroglandular tissue. Benign-appearing nodular densities in the right breast are unchanged. Asymmetric density anteriorly in the left breast also unchanged. There are no new spiculated mass nor new malignant-appearing microcalcification groups. There is no significant architectural distortion nor skin thickening-retraction. IMPRESSION: Stable benign-appearing findings. No obvious radiographic evidence of malignancy. I note that this patient had a palpable finding in the left breast on the prior mammogram September 2020 and the ultrasoun d at that time revealed a finding at the 1 o'clock position for which follow-up 6 month ultrasound wa s recommended. Recommend left breast ultrasound at this time to revisit the finding previously described at the 1 o' clock position on the ultrasound of September 2020. BI-RADS Category 0 - Assessment Incomplete: Need additional imaging evaluation Breast Density - Category B - Scattered areas of fibroglandular density Breast density Category C or D implies that the patient has dense breast tissue. Dense breast tissue can make it harder to find cancer on a mammogram. Dense breast tissue is also associated with an incr eased risk of breast cancer. This information about the result of the mammogram report was provided to the patient to raise their awareness. Use this report when you speak with the patient about their risks for breast cancer, which includes their family history. At that time, you may recommend additional screening tests (Ultrasoun d or MRI) as these tests may add significant information. A negative radiographic report should not delay biopsy if a dominant or clinically suspicious mass is present. Up to ten percent of cancers are not identified on mammography. A negative report may reinforce clinical impression. Adenosis and dense breasts may obscure an underlying neoplasm. False positive reports average 6 to 10%. Patient will receive a letter notifying them of these results.
== END ==
PROVIDERS: PCP Family Medicine; Visit Provider Family Medicine
DX: Z12.31 Encounter for screening mammogram for malignant neoplasm of breast (principal); J84.9 Interstitial pulmonary disease, unspecified; R92.8 Other abnormal and inconclusive findings on diagnostic imaging of breast; R91.8 Other nonspecific abnormal finding of lung field
CPT/HCPCS: 71250; 77063; 77067

== ENCOUNTER → 2022-07-06 13:37 | Outpatient (CLI) | payer MEDICARE, SELFPAY ==
--- NOTE | 2022-07-06 14:02 | DI.RAD_ITS ---
Exam(s) XR CHEST 2V PA LATERAL EXAM: XR CHEST 2V PA LATERAL CLINICAL HISTORY: cough/back pain, chronic cough, R05.3. TECHNIQUE: 2D digital imaging was performed. COMPARISON: CR XR PORTABLE CHEST AP from 02/09/[address] CHEST WO from 01/10/2022 FINDINGS: 2 views: Heart size is normal. The mediastinum is not widened. Mild infiltrate in the right upper lobe again noted. Also suggestion of subtle infiltrates bilateral ly. No pleural effusions. IMPRESSION: As above. If clinically indicated follow-up CT scan can be performed to compared to the prior abnormal CT scan of 01/10/2022. DATA REPOSITORY: RADIATION DOSE DELIVERED:
== END ==
PROVIDERS: PCP Family Medicine; Visit Provider Family Medicine
DX: R05.3 Chronic cough (principal)
CPT/HCPCS: 71046

== ENCOUNTER 2022-10-02 10:26 | Day surgery (SDC) | payer MEDICARE, SELFPAY ==
[2022-10-02 10:46] VITALS: BP 144/74; PULSE 79; RESP 16; TEMP 36; O2SAT 97
[2022-10-02] MEDS: Tropicam./Phenyleph. (1/2.5%) 5 ML BTL OD ×3 (11:25→11:35)
--- NOTE | 2022-10-02 11:34 | W.ANESPRE ---
General Info Date of Service Date Performed: 10/02/22 Height: 5 ft 2 in Weight: 72.9 kg Body Mass Index (BMI): 29.4 Surgical Procedure: Operation Date: 10/02/22 13:40 Proposed Procedure Side Surgeon p Cataract Extraction with IOL Implant Right Frandy Carpenter MD Meds Allergies and Home Medications Allergies Allergy/AdvReac Type Severity Reaction Status Date / Time prednisone AdvReac pounding Verified 09/29/22 10:49 headache Home Medication Medication Instructions Recorded albuterol sulfate 2.5 mg/3 mL 2.5 mg (3 mL) inhalation Q 4 HR 10/22/19 (0.083 %) solution for nebulization PRN #120 vials ipratropium bromide 0.02 % 2.5 ml inhalation QID PRN 10/22/19 solution for inhalation shortness of breath or wheezing #120 vials acetaminophen 300 mg-codeine 30 mg 1 tab PO TID PRN pain #10 tab-caps 04/06/20 tablet levocetirizine 5 mg tablet (Xyzal) 5 mg PO DAILY PRN allergy symptoms 06/01/20 #90 tabs triamcinolone acetonide 0.1 % 15 applic topical BID PRN #60 grams 08/13/20 topical cream budesonide 0.5 mg/2 mL suspension 0.5 mg (2 mL) inhalation BID #360 07/11/21 for nebulization mL simvastatin 40 mg tablet 40 mg PO HS #90 tab-caps 09/13/22 fluoxetine 20 mg capsule (Prozac) 20 mg PO DAILY #90 tab-caps 09/21/22 levothyroxine 88 mcg tablet 88 mcg PO DAILY #90 tab-caps 09/21/22 lisinopril 20 1 tab PO DAILY #90 tab-caps 09/21/22 mg-hydrochlorothiazide 25 mg tablet carbidopa 25 mg-levodopa 100 mg 1 tab PO QHS #90 tab-caps 09/23/22 tablet lactobacillus combination no.4 3 2 PO DAILY 10/02/22 billion cell capsule (Probiotic) mometasone 50 mcg/actuation nasal 2 spray intranasal DAILY PRN 10/02/22 spray Current Visit Medications: Current Medications Generic Name Dose Route Start Last Admin Trade Name Freq PRN Reason Stop Dose Admin Acetaminophen 1,000 mg 10/02/22 06:29 Acetaminophen 500 Mg Tab PO Q4H PRN PRN Miscellaneous Medication 0 ml 10/02/22 06:29 Prednisolone 1%, Moxifloxacin 0.5%, Nepafenac 0.1% 5ml Btl OD DIRECTED JANETTE Miscellaneous Medication 0 ml 10/02/22 06:29 10/02/22 11:30 Tropicam./Phenyleph. (1/2.5%) 5 Ml Btl OD 1 drp DIRECTED JANETTE Administration Tetracaine HCl 0 ml 10/02/22 06:29 Tetracaine 0.5% 4 Ml Btl OD DIRECTED JANETTE PFSH Active Problems Active Problems: Problem Status Onset Code Cortical cataract of right eye H26.9 Nuclear age-related cataract, right eye H25.11 Sleep disturbance G47.9 Cataracts, bilateral H26.9 Rib pain on right side R07.81 GERD (gastroesophageal reflux disease) K21.9 Breast lump in upper outer quadrant N63.0 Facial cellulitis L03.211 Facial rash R21 [address] R93.89 Asthma J45.909 ILD (interstitial lung disease) J84.9 Arthralgia M25.50 Chronic pain syndrome 04/10/17 G89.4 Fatigue R53.83 Nasal congestion R09.81 Periorbital dermatitis L30.9 Night sweats R61 Left breast lump N63.20 Ground glass opacity present on imaging of lung R91.8 Lung nodules R91.8 Bronchospasm J98.01 Cough present for greater than 3 weeks R05 Idiopathic Parkinson's disease G20 Surgical History Surgical History Appendectomy Cholecystectomy History of sinus surgery Per pt. stated she doesn't know what it is called but stated they went in and made windows, it was one in the early Hysterectomy, Laproscopic partial; fibroid knee repair left nasal polypectomy x 2 PROCEDURES SPINAL STRUCT REPAIR NEC spinal stenosis Stent placement per pt. denies Tobacco Smoking/Tobacco Use Status: Former Tobacco Use Passive smoking exposure: Yes Second hand exposure: Yes Alcohol Alcohol Intake: never Substance Use Substance use: Never Substance use type: does not use Vital Signs and Lab Results Vital Signs Most Recent Vital Signs in EMR: Most Recent Vital Signs Temp Pulse Resp BP Pulse Ox 36.0 C L 79 16 144/74 H 97 10/02/22 10:46 10/02/22 10:46 10/02/22 10:46 10/02/22 10:46 10/02/22 10:46 Lab Results Blood Type / Crossmatch: No Data to Display Complete Blood Count: No Data to Display Complete Metabolic Panel: No Data to Display Liver Function Panel: No Data to Display Coagulation Panel: No Data to Display Cardiac Panel: No Data to Display Arterial Blood Gas: No Data to Display Venous Blood Gas: No Data to Display Pancreas Panel: No Data to Display Thyroid Panel: No Data to Display Infectious Disease: No Data to Display Blood Cultures: No Data to Display Toxicology Panel: No Data to Display Imaging and Studies Imaging and Studies Study information below may be from another EMR and interpreted by another provider. Please see original notes in EMR for more complete details. CT Summary: 09/2020: stable bilateral diffuse ground glass opacities in the lungs. Anesthesia Assessment and Plan Anesthesia History Personal History: PONV Family History: No Family History of Anesthesia Complications Exercise Tolerance Exercise Tolerance: Metabolic Equivalents>4 Pertinent Negatives Pertinent Negatives: No Symptoms of GERD Cardiac & Pulmonary Exam Cardiac Exam: Normal S1/S2 Heart Sounds Pulmonary Exam: Clear Bilateral Breath Sounds Implantable Cardiac Device Does patient have a Pacemaker or an ICD?: No Airway Exam Known Difficult Airway: No Mallampati Class: 3 Mouth Opening: Normal (> 3cm) Thyromental Distance: Greater than 3 cm Neck Range of Motion: Limited ROM Neck Circumference: Normal Teeth Condition: Normal Dentition and Other (prominent front teeth) ASA Classification ASA Score: ASA 3 Emergency Case?: No NPO Status NPO Status: NPO Clears >2 hours, Solids >8 hours Anesthesia Plan Resuscitation Status: Full Code Anesthesia Technique: MAC Anesthesia Airway Planned: Natural Airway Monitors Used: Standard Monitors Preoperative Comments:: From patients last case: Preoperative Comments:: 75 yo female for bronch r/t ILD, 6 mm RUL nodule. sig PMHX asthma (albut/budes, rarely uses her albut), hypothyroid (stable on her levothyroxine), HTN (lisinopril/hydrochlorothiazide, home BP ~same as todays), Parkinson's (stable, on every night leva/carba) Previous Mac 3 grade 1 and grade 2, easy mask. Discussed MKO at length, decided to not use sedation if possible.
[2022-10-02 11:35] VITALS: BMI 29.4
[2022-10-02] MEDS: Tetracaine 0.5% 4 ML BTL OD (12:13)
[2022-10-02] MEDS: Balanced Salt Soln.-PLUS 500 ML BAG (12:13)
[2022-10-02] MEDS: Duovisc Viscoelastic System EACH 1 EACH (12:14)
[2022-10-02] MEDS: Povidone-Iodine Ophth 30 ML BTL (12:15)
[2022-10-02] MEDS: Phenylephrine/Lidocaine (15/10) MG/ML 1 ML VIAL (12:15)
[2022-10-02 12:29] VITALS: BP 135/74; PULSE 78; RESP 16; TEMP 36.5; O2SAT 98
--- NOTE | 2022-10-02 12:30 | ROE_ITS ---
Date of service: 10/02/22 Time of Service: 12:30 Operative Note Operative Note DATE OF PROCEDURE: 10/02/22 PRE-OP DIAGNOSIS: Nuclear/cortical cataract, right eye POST-OP DIAGNOSIS: same PROCEDURE: Cataract extraction using phacoemulsification with intraocular lens implant, right eye SURGEON: Frandy Carpenter ANESTHESIA TYPE: Local By Surgeon and MAC Refer to Anesthesia Record ESTIMATED BLOOD LOSS: 0 PATHOLOGY: none sent COMPLICATIONS: None Patient was transported to: same day Patient's condition: stable Implants: Juan Carlos & Juan Carlos Tecnis Eyhance [id number] Indications: Progressive visual loss due to cataract, right eye Procedure Description: CATARACT SURGERY OPERATIVE REPORT PREOPERATIVE DIAGNOSIS: 1. Nuclear/cortical cataract, right eye POSTOPERATIVE DIAGNOSIS: Same OPERATION: 1. Cataract extraction using phacoemulsification with posterior chamber intraocular lens implant, right eye. IOL: IOL Retail Leasing Agent/Model: Juan Carlos & Juan [employer] Tecnis Eyhance DIB00 IOL Power: + 21.0 diopters IOL Serial Number: [id number] Optic Diameter: 6.0mm Haptic/Overall Diameter: 13.0mm PHACO INFO: Rajendra Valnevaurion Vision System with OZil and Active Fluidics Cumulative Dispersed Energy (CDE): 12.77 seconds SURGEON: Frandy Carpenter MD, TICO ANESTHESIA: Monitored Anesthesia Care (MAC), with local sub-tenon's anesthetic infiltration COMPLICATIONS: None SPECIMENS: None INDICATIONS FOR PROCEDURE: The patient is a 77-year-old lady with history of diminished visual acuity in her right eye secondary to the development of nuclear/cortical cataract. The option of cataract surgery was offered to the patient and she wished to proceed. PROCEDURE: The correct surgical eye was identified and marked as the right eye and the pupil was dilated in the preoperative area using mydriatics and cycloplegics. The dilated pupil size was 6.0 mm. The patient elected to proceed without oral sedation. The patient was brought to the operating room where cardiopulmonary monitoring was instituted and surgical time-out was performed, confirming the correct operative eye and IOL power. Topical anesthesia was administered and ophthalmic povidone-iodine 5% was instilled into the conjunctival fornices. Lidocaine gel was applied to the c ornea and the beckie-ocular area was prepped with Betadine 10% solution and draped in the usual sterile fashion for intraocular surgery, including an aperture drape. A Tegaderm transparent film dressing was cut in half and used to cover the lashes and lid margins. Care was taken to sequester the lashes and lid margins under the Tegaderm dressing. A lid speculum was placed between the lids of the operative eye and the Rajendra LuxOR Revalia operating microscope was maneuvered into position. Payton scissors were then used to make a conjunctival buttonhole approximately 6mm posterior to the limbus in the inferonasal quadrant. Blunt dissection was carried out to expose bare sclera, and a blunt-tipped sub-tenon?s anesthesia cannula was introduced and passed posteriorly along the globe where non- preserved plain lidocaine was injected into posterior sub-Tenon?s space. A sideport knife was used to make a paracentesis port inferotemporally. Intraocular phenylephrine/lidocaine was injected into the anterior chamber. The anterior chamber was filled with viscoelastic. A keratome knife was used to construct a 2-plane near-clear corneal tunnel extending 2.0mm into clear cornea superiortemporally. A flap was raised on the anterior capsule and capsulorhexis forceps were used to complete a continuous curvilinear capsulorhexis of 5.5 mm. Balanced salt solution was then used to perform cortical cleaving hydrodissection and nuclear hydrodelineation until the lens could be freely rotated within the capsular bag. The lens nucleus was then disassembled and removed within the capsular bag and iris plane using phacoemulsification. Residual cortical material was removed using the I/A handpiece. The posterior capsule was carefully polished to remove as much residual lens epithelial cells as safely possible. The capsular bag was then inflated and the anterior chamber deepened with viscoelastic. The lens implant described above was inserted into the capsular bag using the Juan Carlos and Kaela Simplicity pre-loaded injector. A Kuglen hook was used to dial the IOL into position. Residual viscoelastic was then removed first from posterior to the IOL, then from the anterior chamber using the I/A handpiece. The lens implant was noted to center nicely within the capsular bag. The incisions were stromally hydrated, and the anterior chamber was reformed using BSS. Then 0.5cc of moxifloxacin 1.0mg/ml were injected into the capsular bag and anterior chamber. The incisions were checked with a Weck spear and found to be secure. Several drops of ophthalmic povidone-iodine 5% were then applied to the eye followed by two drops of Imprimis combination prednisolone/moxifloxacin/nepafenac solution. The drapes were removed and a clear plastic protective eye shield was placed over t he eye. The patient was then returned to [facility] in stable condition.
--- NOTE | 2022-10-02 12:30 | W.PM.DSUDISC ---
Date of service: 10/02/22 Time of Service: 12:30 Discharge Plan Disposition Patient Disposition: Home Discharge Details Attending Provider: Farndy Carpenter Primary Care Provider: Andrzej You Home Meds and New Rx's Prescriptions: No Action ipratropium bromide 0.02 % solution 2.5 ml IH QID PRN (Reason: shortness of breath or wheezing) Qty: 120 2RF albuterol sulfate 2.5 mg /3 mL (0.083 %) solution for nebulization 2.5 mg Inhalation Q 4 HR PRN Qty: 120 2RF acetaminophen-codeine 300-30 mg tablet 1 tab PO TID PRN (Reason: pain) Qty: 10 0RF levocetirizine [Xyzal] 5 mg tablet 5 mg PO DAILY PRN (Reason: allergy symptoms) Qty: 90 1RF triamcinolone acetonide 0.1 % cream 15 applic Topical BID PRNQty: 60 Rx Instructions: Apply budesonide 0.5 mg/2 mL suspension for nebulization 0.5 mg IH BID Qty: 360 3RF simvastatin 40 mg tablet 40 mg PO HS Qty: 90 4RF Rx Instructions: 1 TAB HS fluoxetine [Prozac] 20 mg capsule 20 mg PO DAILY Qty: 90 4RF Rx Instructions: 1 CAP DAILY levothyroxine 88 mcg tablet 88 mcg PO DAILY Qty: 90 4RF Rx Instructions: note dose increase lisinopril-hydrochlorothiazide 20-25 mg tablet 1 tab PO DAILY Qty: 90 4RF Rx Instructions: 20 MG/25 MG DAILY carbidopa-levodopa 25-100 mg tablet 1 tab PO QHS Qty: 90 3RF Probiotic 3 billion cell Capsule 2 PO DAILY Rx Instructions: 2 capsules daily mometasone 50 mcg/actuation spray,non-aerosol 2 spray intranasal DAILY PRN Rx Instructions: administer into each nostril Discharge Instructions Stand Alone Forms: Post-op Topical CataractRobin (DSU) Discharge Orders Discharge Orders: Discharge Order (Routine); Ordered 10/02/22 Ordered By: Frandy Carpenter DS: Diagnosis Discharge Diagnosis (1) Cortical cataract of right eye: Status: Resolved (2) Nuclear age-related cataract, right eye: Status: Resolved
--- NOTE | 2022-10-02 14:06 | W.ANESPOSTOP ---
Postoperative Evaluation Date, Time and Location Date Performed: 10/02/22 Time Performed: 12:29 Patient Location: Day Surgery Unit Vital Signs Most Recent Imported Vital Signs: Most Recent Vital Signs Temp Pulse Resp BP Pulse Ox 36.5 C 78 16 135/74 98 10/02/22 12:29 10/02/22 12:29 10/02/22 12:29 10/02/22 12:29 10/02/22 12:29 Pain Score Most Recent Pain Score: Most Recent Pain Score Pain Level 0 10/02/22 12:29 Assessment Mental Status: Awake (Alert & Oriented to Patient Baseline) Airway and Respiratory Function: Patent airway with normal (patient baseline) respiratory exam Cardiovascular Function: Hemodynamically Stable Hydration Status: Adequately Hydrated Nausea & Vomiting: No Nausea or Vomiting Pain: Pt. Denies Any Pain Peripheral Nerve Block: Other (Local by Dr. Carpenter)
== END 2022-10-02 13:00 | disposition home or self-care (01) ==
LOC: SUR 10:26
PROVIDERS: PCP Family Medicine; Visit Provider Ophthalmology
PROC: (CPT 66984; principal; 2022-10-02 13:30)
DX: H25.11 Age-related nuclear cataract, right eye (principal); K21.9 Gastro-esophageal reflux disease without esophagitis
CPT/HCPCS: 66984; V2632

== ENCOUNTER 2022-10-16 06:19 | Day surgery (SDC) | payer MEDICARE, SELFPAY ==
[2022-10-16 06:44] VITALS: BP 141/74; PULSE 69; RESP 16; TEMP 36.6; O2SAT 97
[2022-10-16] MEDS: Tropicam./Phenyleph. (1/2.5%) 5 ML BTL OS ×3 (06:52→07:09)
--- NOTE | 2022-10-16 06:58 | W.ANESPRE ---
General Info Date of Service Date Performed: 10/16/22 Height: 5 ft 7 in Weight: 72.1 kg Body Mass Index (BMI): 24.9 Surgical Procedure: Operation Date: 10/16/22 07:40 Proposed Procedure Side Surgeon p Cataract Extraction with IOL Implant Left Frandy Carpenter MD Meds Allergies and Home Medications Allergies Allergy/AdvReac Type Severity Reaction Status Date / Time prednisone AdvReac pounding Verified 10/16/22 06:50 headache Home Medication Medication Instructions Recorded albuterol sulfate 2.5 mg/3 mL 2.5 mg (3 mL) inhalation Q 4 HR 10/22/19 (0.083 %) solution for nebulization PRN #120 vials ipratropium bromide 0.02 % 2.5 ml inhalation QID PRN 10/22/19 solution for inhalation shortness of breath or wheezing #120 vials acetaminophen 300 mg-codeine 30 mg 1 tab PO TID PRN pain #10 tab-caps 04/06/20 tablet levocetirizine 5 mg tablet (Xyzal) 5 mg PO DAILY PRN allergy symptoms 06/01/20 #90 tabs triamcinolone acetonide 0.1 % 15 applic topical BID PRN #60 grams 08/13/20 topical cream budesonide 0.5 mg/2 mL suspension 0.5 mg (2 mL) inhalation BID #360 07/11/21 for nebulization mL simvastatin 40 mg tablet 40 mg PO HS #90 tab-caps 09/13/22 fluoxetine 20 mg capsule (Prozac) 20 mg PO DAILY #90 tab-caps 09/21/22 levothyroxine 88 mcg tablet 88 mcg PO DAILY #90 tab-caps 09/21/22 lisinopril 20 1 tab PO DAILY #90 tab-caps 09/21/22 mg-hydrochlorothiazide 25 mg tablet carbidopa 25 mg-levodopa 100 mg 1 tab PO QHS #90 tab-caps 09/23/22 tablet lactobacillus combination no.4 3 2 cell PO DAILY 10/02/22 billion cell capsule (Probiotic) mometasone 50 mcg/actuation nasal 2 spray intranasal DAILY PRN 10/02/22 spray Current Visit Medications: Current Medications Generic Name Dose Route Start Last Admin Trade Name Freq PRN Reason Stop Dose Admin Acetaminophen 1,000 mg 10/16/22 06:00 Acetaminophen 500 Mg Tab PO Q4H PRN PRN Miscellaneous Medication 0 ml 10/16/22 06:00 10/16/22 06:52 Tropicam./Phenyleph. (1/2.5%) 5 Ml Btl OS 1 drp DIRECTED JANETTE Administration Miscellaneous Medication 0 ml 10/16/22 06:00 Prednisolone 1%, Moxifloxacin 0.5%, Nepafenac 0.1% 5ml Btl OS DIRECTED JANETTE Tetracaine HCl 0 ml 10/16/22 06:00 Tetracaine 0.5% 4 Ml Btl OS DIRECTED JANETTE PFSH Active Problems Active Problems: Problem Status Onset Code Cortical cataract of right eye H26.9 Nuclear age-related cataract, right eye H25.11 Sleep disturbance G47.9 Cataracts, bilateral H26.9 Rib pain on right side R07.81 GERD (gastroesophageal reflux disease) K21.9 Breast lump in upper outer quadrant N63.0 Facial cellulitis L03.211 Facial rash R21 [address] R93.89 Asthma J45.909 ILD (interstitial lung disease) J84.9 Arthralgia M25.50 Chronic pain syndrome 04/10/17 G89.4 Fatigue R53.83 Nasal congestion R09.81 Periorbital dermatitis L30.9 Night sweats R61 Left breast lump N63.20 Ground glass opacity present on imaging of lung R91.8 Lung nodules R91.8 Bronchospasm J98.01 Cough present for greater than 3 weeks R05 Idiopathic Parkinson's disease G20 Surgical History Surgical History Appendectomy Cholecystectomy History of sinus surgery Per pt. stated she doesn't know what it is called but stated they went in and made windows, it was one in the early Hysterectomy, Laproscopic partial; fibroid knee repair left nasal polypectomy x 2 PROCEDURES SPINAL STRUCT REPAIR NEC spinal stenosis Stent placement per pt. denies Tobacco Smoking/Tobacco Use Status: Former Tobacco Use Passive smoking exposure: Yes Second hand exposure: Yes Alcohol Alcohol Intake: never Substance Use Substance use: Never Substance use type: does not use Vital Signs and Lab Results Vital Signs Most Recent Vital Signs in EMR: Most Recent Vital Signs Temp Pulse Resp BP Pulse Ox 36.6 C 69 16 141/74 H 97 10/16/22 06:44 10/16/22 06:44 10/16/22 06:44 10/16/22 06:44 10/16/22 06:44 Lab Results Blood Type / Crossmatch: No Data to Display Complete Blood Count: No Data to Display Complete Metabolic Panel: No Data to Display Liver Function Panel: No Data to Display Coagulation Panel: No Data to Display Cardiac Panel: No Data to Display Arterial Blood Gas: No Data to Display Venous Blood Gas: No Data to Display Pancreas Panel: No Data to Display Thyroid Panel: No Data to Display Infectious Disease: No Data to Display Blood Cultures: No Data to Display Toxicology Panel: No Data to Display Imaging and Studies Imaging and Studies Study information below may be from another EMR and interpreted by another provider. Please see original notes in EMR for more complete details. CT Summary: 09/2020: stable bilateral diffuse ground glass opacities in the lungs. Anesthesia Assessment and Plan Anesthesia History Personal History: PONV Family History: No Family History of Anesthesia Complications Exercise Tolerance Exercise Tolerance: Metabolic Equivalents>4 Cardiac & Pulmonary Exam Cardiac Exam: Normal S1/S2 Heart Sounds Pulmonary Exam: Clear Bilateral Breath Sounds Implantable Cardiac Device Does patient have a Pacemaker or an ICD?: No Airway Exam Known Difficult Airway: No Mallampati Class: 3 Mouth Opening: Normal (> 3cm) Thyromental Distance: Greater than 3 cm Neck Range of Motion: Limited ROM Neck Circumference: Normal Teeth Condition: Normal Dentition and Other (prominent front teeth) ASA Classification ASA Score: ASA 3 Emergency Case?: No NPO Status NPO Status: NPO Clears >2 hours, Solids >8 hours Anesthesia Plan Resuscitation Status: Full Code Anesthesia Technique: MAC Anesthesia Airway Planned: Natural Airway Monitors Used: Standard Monitors Preoperative Comments:: Did well with no MKO last time, same plan today
[2022-10-16 07:01] VITALS: BMI 24.9
[2022-10-16] MEDS: Tetracaine 0.5% 4 ML BTL OS (07:29)
[2022-10-16] MEDS: Lidocaine 1% Pres-Free 5 ML VIAL (07:36)
[2022-10-16] MEDS: Balanced Salt Soln.-PLUS 500 ML BAG (07:38)
[2022-10-16] MEDS: Phenylephrine/Lidocaine (15/10) MG/ML 1 ML VIAL (07:38)
[2022-10-16] MEDS: Duovisc Viscoelastic System EACH 1 EACH (07:38)
[2022-10-16] MEDS: Povidone-Iodine Ophth 30 ML BTL (07:39)
[2022-10-16 07:56] VITALS: BP 113/99; PULSE 70; RESP 16; TEMP 36.5; O2SAT 94
--- NOTE | 2022-10-16 07:58 | W.PM.DSUDISC ---
Date of service: 10/16/22 Time of Service: 07:58 Discharge Plan Disposition Patient Disposition: Home Discharge Details Attending Provider: Frandy Carpenter Primary Care Provider: Andrzej You Home Meds and New Rx's Prescriptions: No Action ipratropium bromide 0.02 % solution 2.5 ml IH QID PRN (Reason: shortness of breath or wheezing) Qty: 120 2RF albuterol sulfate 2.5 mg /3 mL (0.083 %) solution for nebulization 2.5 mg Inhalation Q 4 HR PRN Qty: 120 2RF acetaminophen-codeine 300-30 mg tablet 1 tab PO TID PRN (Reason: pain) Qty: 10 0RF levocetirizine [Xyzal] 5 mg tablet 5 mg PO DAILY PRN (Reason: allergy symptoms) Qty: 90 1RF triamcinolone acetonide 0.1 % cream 15 applic Topical BID PRNQty: 60 Rx Instructions: Apply budesonide 0.5 mg/2 mL suspension for nebulization 0.5 mg IH BID Qty: 360 3RF Patient Comments: pt reports last used 2 months ago. simvastatin 40 mg tablet 40 mg PO HS Qty: 90 4RF Rx Instructions: 1 TAB HS fluoxetine [Prozac] 20 mg capsule 20 mg PO DAILY Qty: 90 4RF Rx Instructions: 1 CAP DAILY levothyroxine 88 mcg tablet 88 mcg PO DAILY Qty: 90 4RF Rx Instructions: note dose increase lisinopril-hydrochlorothiazide 20-25 mg tablet 1 tab PO DAILY Qty: 90 4RF Rx Instructions: 20 MG/25 MG DAILY carbidopa-levodopa 25-100 mg tablet 1 tab PO QHS Qty: 90 3RF Probiotic 3 billion cell Capsule 2 cell PO DAILY Rx Instructions: 2 capsules daily mometasone 50 mcg/actuation spray,non-aerosol 2 spray intranasal DAILY PRN Rx Instructions: administer into each nostril Discharge Instructions Stand Alone Forms: Post-op Topical Cataract, Robin Guzmán (DSU) Discharge Orders Discharge Orders: Discharge Order (Routine); Ordered 10/16/22 Ordered By: Frandy Carpenter DS: Diagnosis Discharge Diagnosis (1) Nuclear age-related cataract, left eye: Status: Resolved (2) Cortical age-related cataract, left eye: Status: Resolved
--- NOTE | 2022-10-16 07:59 | ROE_ITS ---
Date of service: 10/16/22 Time of Service: 07:59 Operative Note Operative Note DATE OF PROCEDURE: 10/16/22 PRE-OP DIAGNOSIS: Nuclear/cortical cataract, left eye POST-OP DIAGNOSIS: same PROCEDURE: Cataract extraction using phacoemulsification with intraocular lens implant, left eye SURGEON: Frandy Carpenter ANESTHESIA TYPE: Local By Surgeon and MAC Refer to Anesthesia Record PATHOLOGY: none sent COMPLICATIONS: None Patient was transported to: same day Patient's condition: stable Implants: Juan Carlos and Juan [employer] Tecnis Eyhance [id number] Indications: Progressive decreased vision due to cataract, left eye Procedure Description: CATARACT SURGERY OPERATIVE REPORT PREOPERATIVE DIAGNOSIS: 1. Nuclear/cortical cataract, left eye POSTOPERATIVE DIAGNOSIS: Same OPERATION: 1. Cataract extraction using phacoemulsification with posterior chamber intraocular lens implant, left eye. IOL: IOL Laser Beam Machine Operator/Model: Juan Carlos & Juan [employer] Tecnis Eyhance [id number] IOL Power: + 21.5 diopters IOL Serial Number: [id number] Optic Diameter: 6.0 mm Haptic/Overall Diameter: 13.0 mm PHACO INFO: RajendraTouristEyeon Vision System with OZil and Active Fluidics Cumulative Dispersed Energy (CDE): 16.13 seconds SURGEON: Frandy Carpenter MD, TICO ANESTHESIA: Monitored A [facility] (MAC), with local sub-tenon's anesthetic infiltration COMPLICATIONS: None SPECIMENS: None INDICATIONS FOR PROCEDURE: The patient is a 77-year-old lady with history of diminished visual acuity in both eyes secondary to the development of bilateral nuclear/cortical cataract. She has already undergone cataract surgery in the right eye and is doing well postoperatively. She now presents for cataract surgery in the left eye PROCEDURE: The correct surgical eye was identified and marked as the left eye and the pupil was dilated in the preoperative area using mydriatics and cycloplegics. The dilated pupil size was 5.5 mm. The patient elected to proceed without oral sedation. The patient was brought to the operating room where cardiopulmonary monitoring was instituted and surgical time-out was performed, confirming the correct operative eye and IOL power. Topical anesthesia was administered and ophthalmic povidone-iodine 5% was insti lled into the conjunctival fornices. Lidocaine gel was applied to the cornea and the beckie-ocular area was prepped with Betadine 10% solution and draped in the usual sterile fashion for intraocular surgery, including an aperture drape. A Tegaderm transparent film dressing was cut in half and used to cover the lashes and lid margins. Care was taken to sequester the lashes and lid margins under the Tegaderm dressing. A lid speculum was placed between the lids of the operative eye and the Rajendra LuxOR Revalia operating microscope was maneuvered into position. Payton scissors were then used to make a conjunctival buttonhole approximately 6mm posterior to the limbus in the inferonasal quadrant. Blunt dissection was carried out to expose bare sclera, and a blunt-tipped sub-tenon?s anesthesia cannula was introduced and passed posteriorly along the globe where non- preserved plain lidocaine was injected into posterior sub-Tenon?s space. A sideport knife was used to make a paracentesis port superiorly/superiortemporally. Intraocular phenylephrine/lidocaine was injected int the anterior chamber.. The anterior chamber was filled with viscoelastic. A keratome knife was used to construct a 2-plane near-clear corneal tunnel extending 2.0mm into clear cornea temporally. A flap was raised on the anterior capsule and capsulorhexis forceps were used to complete a continuous curvilinear capsulorhexis of 5.0 mm. Balanced salt solution was then used to perform cortical cleaving hydrodissection and nuclear hydrodelineation until the lens could be freely rotated within the capsular bag. The lens nucleus was then disassembled and removed within the capsular bag and iris plane using phacoemulsification. Residual cortical material was removed using the 45-degree angled silicone I/A t ip with 0.3mm port. The posterior capsule was carefully polished to remove as much residual lens epithelial cells as safely possible. The capsular bag was then inflated and the anterior chamber deepened with viscoelastic. The lens implant described above was inserted into the capsular bag using the Juan Carlos and Juan Carlos Simplicity pre-loaded injector. . A Kuglen hook was used to dial the IOL into position. Residual viscoelastic was then removed first from posterior to the IOL, then from the anterior chamber using the I/A handpiece. The lens implant was noted to center nicely within the capsular bag. The incisions were stromally hydrated, and the anterior chamber was reformed using BSS. Then 0.5cc of moxifloxacin 1.0mg/ml were injected into the capsular bag and anterior chamber. The in cisions were checked with a Weck spear and found to be secure. Several drops of ophthalmic povidone-iodine 5% were then applied to the eye followed by two drops of Imprimis combination prednisolone/moxifloxacin/nepafenac solution. The drapes were removed and a clear plastic protective eye shield was placed over the eye. The patient was then returned to Same Day Surgery in stable condition.
--- NOTE | 2022-10-16 08:13 | W.ANESPOSTOP ---
Postoperative Evaluation Date, Time and Location Date Performed: 10/16/22 Time Performed: 07:56 Patient Location: Day Surgery Unit Vital Signs Most Recent Imported Vital Signs: Most Recent Vital Signs Temp Pulse Resp BP Pulse Ox 36.5 C 70 16 113/99 H 94 10/16/22 07:56 10/16/22 07:56 10/16/22 07:56 10/16/22 07:56 10/16/22 07:56 Pain Score Most Recent Pain Score: Most Recent Pain Score Pain Level 0 10/16/22 07:56 Assessment Mental Status: Awake (Alert & Oriented to Patient Baseline) Airway and Respiratory Function: Patent airway with normal (patient baseline) respiratory exam Cardiovascular Function: Hemodynamically Stable Hydration Status: Adequately Hydrated Nausea & Vomiting: No Nausea or Vomiting Pain: Pt. Denies Any Pain Peripheral Nerve Block: Patient did not receive a nerve block
== END 2022-10-16 08:23 | disposition home or self-care (01) ==
LOC: SUR 06:20
PROVIDERS: PCP Family Medicine; Visit Provider Ophthalmology
PROC: (CPT 66984; principal; 2022-10-16 07:30)
DX: H25.12 Age-related nuclear cataract, left eye (principal); H25.012 Cortical age-related cataract, left eye; K21.9 Gastro-esophageal reflux disease without esophagitis; Z98.41 Cataract extraction status, right eye
CPT/HCPCS: 66984; V2632

== ENCOUNTER 2023-04-24 09:39 | Outpatient (CLI) | payer MEDICARE, SELFPAY ==
[2023-04-24 13:00] LABS: Abs Immature Grans 0.02 10^3/uL (0.0-0.06); Absolute Basophil Count 0.04 10^3/uL (0.0-0.2); Absolute Lymphocyte Count 2.56 10^3/uL (1.2-3.4); Absolute Monocyte Count 0.55 10^3/uL (0.1-0.8); Absolute Neutrophil Count 5.32 10^3/uL (1.2-6.7); Basophils % 0.5; Eosinophils % 2.3; HCT 37.4 % (36.0-46.0); HGB 12.7 g/dL (11.2-15.7); Immature Grans % 0.2; Lymphocytes % 29.5; MCH 31.1 pg (27.0-33.0); MCV 91 fL (80-95); MPV 9.2 fL (8.0-11.0); Monocytes % 6.3; Neutrophils % 61.2; Platelet Count 364 10^3/uL (130-400); RBC 4.09 10^6/uL (3.93-5.22); RDW 11.3 % (11.7-14.6); RDW-SD 37.8 fL; WBC 8.69 10^3/uL (4.4-10.8)
[2023-04-24 13:20] LABS: Iron 82 ug/dL (50-170)
[2023-04-24 13:24] LABS: Anion Gap 8.8 mmol/L (3-11); BUN 20 mg/dL (7-18); CO2 25.2 mmol/L (21.0-32.0); CREATININE 1.2 mg/dL (0.55-1.02); Calcium 9.6 mg/dL (8.5-10.1); Chloride 99 mmol/L (98-107); Estimated GFR 45.76 (mL/min/1.73m2); Glucose 93 mg/dL (74-106); Potassium 4.3 mmol/L (3.5-5.1); Sodium 133 mmol/L (136-145); TSH (W/Ref FT4) 0.51 uIU/mL (0.36-3.74)
== END 2023-04-24 09:40 | disposition home or self-care (01) ==
LOC: LOS 09:39
PROVIDERS: PCP Family Medicine; Visit Provider Family Medicine
DX: E03.9 Hypothyroidism, unspecified (principal); D64.9 Anemia, unspecified; E87.1 Hypo-osmolality and hyponatremia
CPT/HCPCS: 36415; 80048; 83540; 84443; 85025

== ENCOUNTER → 2023-05-07 02:00 | Outpatient (CLI) | payer MEDICARE, SELFPAY ==
--- NOTE | 2023-05-07 08:15 | DI.CT_ITS ---
Exam(s) CT CHEST WO EXAM: CT CHEST WO CLINICAL HISTORY: reassess lung disease,f/u abnl chest ct,r93.89,bilat lung infiltrates TECHNIQUE: Imaging Protocol: Axial computed tomography images with coronal and sagittal reformatted images were created and reviewed CONTRAST MATERIAL: Intravenous: Omnipaque 350 Contrast volume:structured data ml. COMPARISON: CT CT CHEST PE CTA from 10/23/[address] CHEST WO from 02/01/2021 CR XR PORTABLE CHEST AP from 02/09/[address] CHEST WO from 01/10/2022 CR XR CHEST 2V PA LATERAL from 07/06/2022 FINDINGS: Pulmonary parenchyma: There has been some interval improvement in the previously noted bilateral infi ltrates. There are mild residual densities and scarring, greater in the upper lobes. No change 6 mi llimeter nodule right upper lobe. No consolidation. No dominant measurable mass. Tracheobronchial tree: No bronchiectasis or mucous plugging. Mediastinum and Mary Jo: No dominant adenopathy or fluid collection. Pleura: No effusion. No pneumothorax. Heart: The heart is not dilated. No coronary artery calcifications are seen. Mitral valve heavily c alcified. Aorta: Thoracic aorta non-dilated. Mild atherosclerotic changes. Upper abdomen: Status post cholecystectomy. Small stone upper pole left kidney. Bones: Stable moderate compression fracture of T12. Severe degenerative changes T12-L1 through L2-3. Osteophytes midthoracic spine. Soft tissues: Unremarkable. IMPRESSION: Interval improvement in bilateral pulmonary infiltrates with some residual opacities and mild scarrin g in both upper lobes. Stable 6 millimeter nodule right upper lobe. RADIATION DOSE DELIVERED: Total DLP DATA REPOSITORY: All CT scans at this facility are submitted to the National Radiology Data Registry (NRDR) Dose Index Registry (DIR) with the [employer] (A[employer]). RADIATION OPTIMIZATION: All CT scans at this facility use at least one of these dose optimization te chniques: automated exposure control; mA and/or kV adjustment per patient size (includes targeted exa ms where dose is matched to clinical indication); or iterative reconstruction.
== END ==
PROVIDERS: PCP Family Medicine; Visit Provider Family Medicine
DX: R91.8 Other nonspecific abnormal finding of lung field (principal)
CPT/HCPCS: 71250

== ENCOUNTER → 2023-08-03 00:38 | Outpatient (CLI) | payer MEDICARE, SELFPAY ==
--- NOTE | 2023-08-03 07:38 | DI.RAD_ITS ---
Exam(s) XR CHEST 2V PA LATERAL EXAM: XR CHEST 2V PA LATERAL CLINICAL HISTORY: sob,CHRONIC COUGH,R06.02,R05.3 TECHNIQUE: 2D digital imaging was performed. COMPARISON: CR XR CHEST 2V PA LATERAL from 07/06/2022 FINDINGS: HEART: Normal size. Aorta: Not dilated. PULMONARY VASCULATURE: Normal. LUNGS: Fibrotic changes. PLEURAL SPACE: No pleural effusion or pneumothorax. BONE:Able compression fracture T12. Degenerative changes. Soft tissues: Unremarkable. IMPRESSION: Fibrotic changes. No acute abnormality. DATA REPOSITORY: RADIATION DOSE DELIVERED:
== END ==
PROVIDERS: PCP Family Medicine; Visit Provider Family Medicine
DX: R05.3 Chronic cough (principal); R06.02 Shortness of breath; R91.8 Other nonspecific abnormal finding of lung field
CPT/HCPCS: 71046

== ENCOUNTER 2023-10-30 12:35 | Emergency (ER) | payer MEDICARE, SELFPAY ==
[2023-10-30] VITALS (13 sets, daily range): BP systolic 133–1429; BP diastolic 60–87; PULSE 67–92; RESP 15–23; TEMP 36.4; O2SAT 96–99
--- NOTE | 2023-10-30 12:30 | RT.EKG_ITS ---
APPROVED REPORT Exam: Resting ECG Reason for Exam: chest discomfort Patient Location: E HR:82 bpm ECG Measurements Heart Rate 82 AXIS GA 197 P 38 QRSd 81 QRS -2 QT 384 T 17 QTc 448 Conclusion Sinus rhythm...normal P axis, V-rate 60- 99 Atrial premature complex...SV complex w/ short R-R interval sinus rhythm, left axis, PAC, non ischemic
--- NOTE | 2023-10-30 13:00 | DI.RAD_ITS ---
Exam(s) XR CHEST 2V PA LATERAL EXAM: XR CHEST 2V PA LATERAL CLINICAL HISTORY: chest pain. TECHNIQUE: 2D digital imaging was performed. COMPARISON: CR XR CHEST 2V PA LATERAL from 08/03/2023 FINDINGS: 2 views: Heart size is normal. The mediastinum is not widened. Left lung is clear. There is focal area of increased markings in the lower right lung field seen onl y on the frontal view. Measures approximately 1.8 x 1.0 cm. There are no pleural effusions. IMPRESSION: Nodular infiltrate right lower lung field measuring approximately 1.8 x 1.0 cm. Close follow-up shaylee mmended. DATA REPOSITORY: RADIATION DOSE DELIVERED:
[2023-10-30 13:35] LABS: Abs Immature Grans 0.01 10^3/uL (0.0-0.06); Absolute Basophil Count 0.03 10^3/uL (0.0-0.2); Absolute Lymphocyte Count 2.66 10^3/uL (1.2-3.4); Absolute Monocyte Count 0.43 10^3/uL (0.1-0.8); Absolute Neutrophil Count 5.54 10^3/uL (1.2-6.7); Basophils % 0.3; Eosinophils % 2.3; HCT 39.3 % (36.0-46.0); HGB 13.4 g/dL (11.2-15.7); Immature Grans % 0.1; MCH 31.5 pg (27.0-33.0); MCHC 34.1 % (32.0-36.0); MCV 93 fL (80-95); MPV 9.3 fL (8.0-11.0); Monocytes % 4.8; Neutrophils % 62.5; Platelet Count 355 10^3/uL (130-400); RBC 4.25 10^6/uL (3.93-5.22); RDW-SD 37.5 fL; WBC 8.87 10^3/uL (4.4-10.8)
[2023-10-30 13:47] LABS: Prothrombin Time 9.9 sec (9.1-11.1)
[2023-10-30] MEDS: Aspirin 81 MG CHEW 324 MG CH (13:51)
--- NOTE | 2023-10-30 13:52 | ED.GENADUL_ITS ---
Discharge Plan Disposition Patient Disposition: Home Condition: Improving Discharge Details Chief Complaint: Chest Pain Clinical Impression: Chest pain Primary Care Provider: Andrzej You ED Provider: Frandy Carr Home Meds and New Rx's Prescriptions: No Action ipratropium bromide 0.02 % solution 2.5 ml IH QID PRN (Reason: shortness of breath or wheezing) Qty: 120 2RF albuterol sulfate 2.5 mg /3 mL (0.083 %) solution for nebulization 2.5 mg Inhalation Q 4 HR PRN Qty: 120 2RF carbidopa-levodopa 25-100 mg tablet 1 tab PO QHS Qty: 90 3RF budesonide 0.5 mg/2 mL suspension for nebulization 0.5 mg IH BID Qty: 360 3RF Patient Comments: pt reports last used 2 months ago. lisinopril-hydrochlorothiazide 20-25 mg tablet 1 tab PO DAILY Qty: 90 4RF Rx Instructions: 20 MG/25 MG DAILY fluoxetine [Prozac] 20 mg capsule 20 mg PO DAILY Qty: 90 4RF Rx Instructions: 1 CAP DAILY simvastatin 40 mg tablet 40 mg PO HS Qty: 90 4RF Rx Instructions: 1 TAB HS levothyroxine 88 mcg tablet 88 mcg PO DAILY Qty: 90 4RF Rx Instructions: note dose increase Probiotic 3 billion cell Capsule 2 cell PO DAILY Rx Instructions: 2 capsules daily Discharge Instructions Instructions: Chest Pain (ED) Additional Instructions: You were found to have an incidental lung nodule. Please follow-up with your primary care physician to schedule repeat imaging in the coming weeks to months to monitor this finding. Please return to the emergency department for any w orsening symptoms. HPI General Date/Time Provider Initiated Documentation: 10/30/23 12:41 . HPI Narrative: 78-year-old female history of Parkinson's presents with chest pain while she was outside earlier this afternoon, brief in nature rating down left arm, now resolved, denies history of coronary disease or thromboembolic disease. Related Data Home Medications Medication Instructions Recorded Confirmed albuterol sulfate 2.5 mg/3 mL 2.5 mg (3 mL) inhalation Q 4 HR 10/22/19 10/30/23 (0.083 %) solution for nebulization PRN #120 vials ipratropium bromide 0.02 % 2.5 ml inhalation QID PRN 10/22/19 10/30/23 solution for inhalation shortness of breath or wheezing #120 vials budesonide 0.5 mg/2 mL suspension 0.5 mg (2 mL) inhalation BID #360 07/11/21 10/30/23 for nebulization mL lactobacillus combination no.4 3 2 cell PO DAILY 10/02/22 10/30/23 billion cell capsule (Probiotic) carbidopa 25 mg-levodopa 100 mg 1 tab PO QHS #90 tab-caps 04/24/23 10/30/23 tablet fluoxetine 20 mg capsule (Prozac) 20 mg PO DAILY #90 tab-caps 09/03/23 10/30/23 levothyroxine 88 mcg tablet 88 mcg PO DAILY #90 tab-caps 09/03/23 10/30/23 lisinopril 20 1 tab PO DAILY #90 tab-caps 09/03/23 10/30/23 mg-hydrochlorothiazide 25 mg tablet simvastatin 40 mg tablet 40 mg PO HS #90 tab-caps 09/03/23 10/30/23 Previous Rx's Medication Instructions Recorded albuterol sulfate 2.5 mg/3 mL 2.5 mg (3 mL) inhalation Q 4 HR 10/22/19 (0.083 %) solution for nebulization PRN #120 vials ipratropium bromide 0.02 % 2.5 ml inhalation QID PRN 10/22/19 solution for inhalation shortness of breath or wheezing #120 vials budesonide 0.5 mg/2 mL suspension 0.5 mg (2 mL) inhalation BID #360 07/11/21 for nebulization mL carbidopa 25 mg-levodopa 100 mg 1 tab PO QHS #90 tab-caps 04/24/23 tablet fluoxetine 20 mg capsule (Prozac) 20 mg PO DAILY #90 tab-caps 09/03/23 levothyroxine 88 mcg tablet 88 mcg PO DAILY #90 tab-caps 09/03/23 lisinopril 20 1 tab PO DAILY #90 tab-caps 09/03/23 mg-hydrochlorothiazide 25 mg tablet simvastatin 40 mg tablet 40 mg PO HS #90 tab-caps 09/03/23 Allergies Allergy/AdvReac Type Severity Reaction Status Date / Time prednisone AdvReac pounding Verified 10/30/23 12:56 headache General Stated Complaint: Chest Pain AMBER: 2 Review of Systems Narrative: Review of Systems Constitutional: negative Eyes: negative ENT: negative Cardiovascular: Chest pain Respiratory: negative Gastrointestinal: negative : negative Musculoskeletal: negative Skin: negative Neurologic: negative Psych: negative Exam Narrative Exam Narrative: Physical Examination General: alert, awake, cooperative, resting comfortably, no acute distress HEENT: normocephalic, atraumatic; PERRL, EOM intact, conjunctiva normal; no nasal discharge; moist mucous membranes, oral and pharyngeal mucosa normal, tolerating secretions Neck: supple, trachea midline; full ROM Chest: normal to inspection Respiratory: normal respiratory effort, speaking in full sentences, clear to auscultation, no wheezing, rales or rhonchi Cardiac: regular rate, regular rhythm, S1S2 intact, no murmurs rubs or gallops GI: abdomen soft, non-tender, non-distended; no palpable mass or hepatosplenomegaly Skin: no lesions, rashes or trauma appreciated Neuro: AAOx3, normal speech, moving all extremities Extremities: No peripheral edema Psych: Appropriate mood and affect Course Vital Signs Vital signs: Vital Signs Temperature 36.4 C L 10/30/23 12:38 Pulse 90 10/30/23 12:38 Respiratory Rate 16 10/30/23 12:38 Blood Pressure 1429/82 H 10/30/23 12:38 Pulse Oximetry 99 10/30/23 12:38 Temperature 36.4 C L 10/30/23 12:38 Temperature Source Tympanic 10/30/23 12:38 Pulse 90 10/30/23 12:38 Respiratory Rate 18 10/30/23 12:51 Respiratory Effort Normal, Non-Labored 10/30/23 12:51 Respiratory Depth Normal 10/30/23 12:51 Respiratory Pattern Normal 10/30/23 12:51 Blood Pressure 1429/82 H 10/30/23 12:38 Blood Pressure Position Sitting 10/30/23 12:38 Pulse Oximetry 99 10/30/23 12:38 Oxygen Delivery Method Room Air 10/30/23 12:38 Oxygen Flow Rate 0 10/30/23 12:38 Pain Level 2 10/30/23 12:38 Lab/Test Results Lab/Test Results: Laboratory Tests Range/Units 10/30/23 12:55 WBC (4.4-10.8) 10^3/uL 8.87 RBC (3.93-5.22) 10^6/uL 4.25 Hgb (11.2-15.7) g/dL 13.4 Hct (36.0-46.0) % 39.3 MCV (80-95) fL 93 MCH (27.0-33.0) pg 31.5 MCHC (32.0-36.0) % 34.1 RDW (11.7-14.6) % 11.0 L Plt Count (130-400) 10^3/uL 355 MPV (8.0-11.0) fL 9.3 Immature Gran % 0.1 Neutrophils % 62.5 Lymphocytes % 30.0 Monocytes % 4.8 Eosinophils % 2.3 Basophils % 0.3 Nucleated RBC % (0.0-0.3) % 0.0 Absolute Neutrophils (1.2-6.7) 10^3/uL 5.54 Absolute Lymphocytes (1.2-3.4) 10^3/uL 2.66 Absolute Monocytes (0.1-0.8) 10^3/uL 0.43 Absolute Eosinophils (0.0-0.7) 10^3/uL 0.20 Absolute Basophils (0.0-0.2) 10^3/uL 0.03 PT (9.1-11.1) sec 9.9 INR (0.9-1.1) 1.0 APTT (23.6-32.8) sec 25.0 Medical Decision Making 78-year-old female history of Parkinson's presents with nonexertional anterior chest pain rating down her left arm brief in nature now resolved, no shortness of breath no nausea no vomiting no diaphoresis no palpitations, EKG normal sinus rhythm nonischemic, hemodynamically stable no acute distress. Must consider ACS lower suspicion for PE or aortic pathology low suspicion for pneumothorax or pneumonia, patient does have known mitral valve stenosis, asymptomatic at this point. Loaded with aspirin. Will obtain basic labs troponin chest x-ray close reassessment. 14: 30 patient resting comfortably no acute distress asymptomatic. Labs imaging unremarkable. Incidental lung nodule discussed with patient. Home care instructions return precautions. Family and patient would like to go home will follow-up with primary care Quality:SDOH Health Related Social Needs: No Data to Display PFSH All Active Problems (Updated 10/30/23 @ 14:33 by Frandy Carr MD) Chest pain (Acute) Sleep disturbance (Acute) Cataracts, bilateral (Acute) Rib pain on right side (Acute) GERD (gastroesophageal reflux disease) (Chronic) ILD (interstitial lung disease) (Acute) Asthma (Chronic) Abnormal chest CT (Acute) Facial rash (Acute) Arthralgia (Acute) Facial cellulitis (Acute) Ground glass opacity present on imaging of lung (Acute) Left breast lump (Acute) Lung nodules (Acute) Night sweats (Acute) Breast lump in upper outer quadrant (Acute) Periorbital dermatitis (Acute) Nasal congestion (Acute) Fatigue (Acute) Bronchospasm (Acute) Cough present for greater than 3 weeks (Acute) Idiopathic Parkinson's disease (Acute) Chronic pain syndrome (Acute 04/10/17) Surgical History Hx of cataract removal with insertion of prosthetic lens bilateral 09/28-10/29 History of sinus surgery Per pt. stated she doesn't know what it is called but stated they went in and made windows, it was one in the early nasal polypectomy x 2 knee repair left Stent placement per pt. denies PROCEDURES SPINAL STRUCT REPAIR NEC spinal stenosis Hysterectomy, Laproscopic partial; fibroid Cholecystectomy Appendectomy Family History Mother , 91 Heart disease Cancer Father , 79 Alcohol abuse Colon cancer Liver cancer Sister Premature Brother , 77 Dementia Brother , 81 No problems noted. Maternal Grandfather , 50 Heart disease Neoplasm Paternal Grandfather Stomach cancer Maternal Grandmother , 70s Stroke Heart disease Paternal Grandmother , CHILDBIRTH at age 37. No problems noted. Daughter Depression Paternal Family History Neoplasm BRAIN Social History (Updated 04/26/23 @ 08:13 by Annmarie Bansal) Smoking/Tobacco Use Status: Former Tobacco Use tobacco type: cigarettes Quit Date: 07/09/1959 Second Hand Exposure: Yes Smoking risk assessment performed?: Yes Alcohol Intake: never Drug use: Never Substance use type: does not use Adopted: No Caregiver/Support person: No Foster care: No Household members: significant other Housing: house Number of Children: 2 number of grandchildren: 2 Communication Needs: None Education Level: college Do you need help understanding health information?: Rarely Pets and animals: No Do you think of yourself as: straight/heterosexual Current gender identity: female What is your relationship status?: living with partner How often do you talk on the phone with friends or family?: once per week How often do you get together with friends or relatives?: decline to answer How often do you attend holiness or nondenominational services?: decline to answer Do you belong to any clubs or organized social groups?: no Panel score (0-1 are the most socially isolated patients): 1 What type of physical activity do you participate in: other Details: Housekeeping,sitting excercises Frequency: daily Earnestine/Episcopal: Restorationism Special earnestine needs: No Agree to transfusion: Yes Seatbelt use: always Helmet use: Yes Helmet use: always Drive intox or ride w/intox auto driver: No Working smoke detector in home: Yes Carbon monox detector in home: No Firearms in home: Yes Do you feel safe at home: Yes Do you feel safe in your relationship?: Yes Victim of physical abuse: No Victim of emotional abuse: No Victim of sexual abuse: No Would you like helpful sources: No Additional Social history: Unable to assess daly
[2023-10-30 14:10] LABS: ALT 22 U/L (14-59); AST 21 U/L (15-37); Albumin 4.5 g/dL (3.4-5.0); Alkaline Phosphatase 101 U/L (46-116); Anion Gap 14.4 mmol/L (3-11); BUN 17 mg/dL (7-18); Bilirubin, Total 0.5 mg/dL (0.2-1.0); CO2 24.6 mmol/L (21.0-32.0); CREATININE 1.1 mg/dL (0.55-1.02); Calcium 9.2 mg/dL (8.5-10.1); Chloride 99 mmol/L (98-107); Glucose 94 mg/dL (74-106); NT-proBNP 426 pg/mL (<300); Potassium 3.5 mmol/L (3.5-5.1); Sodium 138 mmol/L (136-145); Total Protein 8.1 g/dL (6.4-8.2); Troponin I < 50 ng/L (< or =60)
== END 2023-10-30 14:43 | disposition home or self-care (01) ==
PROVIDERS: Emergency Provider Emergency Medicine; PCP Family Medicine
DX: R07.9 Chest pain, unspecified (principal); R91.1 Solitary pulmonary nodule; G20.A1 Parkinson's disease without dyskinesia, without mention of fluctuations; Z87.891 Personal history of nicotine dependence
CPT/HCPCS: 80053; 93005; 99285; 71046; 83880; 84484; 85025; 85610; 85730; 93010; 99284

== ENCOUNTER 2024-04-03 10:47 | Outpatient (CLI) | payer MEDICARE, SELFPAY ==
--- NOTE | 2024-04-03 09:30 | DI.RAD_ITS ---
Exam(s) XR KNEE LT 3V AP,LAT,TOSIN EXAM: XR KNEE LT 3V AP,LAT,TOSIN CLINICAL HISTORY: left knee pain/swelling; no injury, M25.562. TECHNIQUE: 2D digital imaging was performed of the left knee. Three images were obtained. AP, late ral and PA tunnel views were obtained. COMPARISON: There are no priors for comparison. FINDINGS: BONES: No acute fracture is present. No bony destructive lesion is seen. Enthesophytes are seen at t he anterior patella. JOINTS: There is marked tricompartment osteoarthritis characterized by joint space narrowing and oste ophytes. The findings are most marked in the medial femoral tibial and patellofemoral joints. There is flattening of the medial femoral condylar articular surface. There is chondrocalcinosis in the f emoral tibial joint. There is a small joint effusion. SOFT TISSUE: Normal. IMPRESSION: Marked osteoarthritis of the left knee. DATA REPOSITORY: RADIATION DOSE DELIVERED:
== END 2024-04-03 11:07 ==
LOC: DI 10:48
PROVIDERS: PCP Family Medicine; Visit Provider Family Medicine
DX: M17.12 Unilateral primary osteoarthritis, left knee (principal)
CPT/HCPCS: 73562

== ENCOUNTER 2024-04-29 10:07 | Outpatient (CLI) | payer MEDICARE, SELFPAY ==
[2024-04-29 12:34] LABS: HGB 12.3 g/dL (11.2-15.7); MCH 31.2 pg (27.0-33.0); MCHC 33.2 % (32.0-36.0); MCV 94 fL (80-95); MPV 9.5 fL (8.0-11.0); Platelet Count 316 10^3/uL (130-400); RBC 3.94 10^6/uL (3.93-5.22); RDW 11.7 % (11.7-14.6); RDW-SD 40.1 fL; WBC 8.14 10^3/uL (4.4-10.8)
[2024-04-29 12:56] LABS: NT-proBNP 315 pg/mL (<300); TSH (W/Ref FT4) 0.84 uIU/mL (0.36-3.74)
== END 2024-04-29 10:08 ==
LOC: LOS 10:07
PROVIDERS: PCP Family Medicine; Referring Provider Family Medicine; Visit Provider Family Medicine
DX: R06.02 Shortness of breath (principal); R53.83 Other fatigue; E03.9 Hypothyroidism, unspecified; R05.3 Chronic cough; Z00.00 Encounter for general adult medical examination without abnormal findings
CPT/HCPCS: 36415; 85027; 83880; 84443

== ENCOUNTER 2024-05-06 00:52 | Outpatient (CLI) | payer MEDICARE, SELFPAY ==
--- NOTE | 2024-05-06 06:15 | DI.RAD_ITS ---
Exam(s) XR CHEST 2V PA LATERAL EXAM: XR CHEST 2V PA LATERAL CLINICAL HISTORY: cough/wheeze,r05.3 TECHNIQUE: 2D digital imaging was performed. Two views. COMPARISON: CR XR CHEST 2V PA LATERAL from 10/30/2023 FINDINGS: HEART: Normal size. Aorta: Not dilated. PULMONARY VASCULATURE: Normal. MEDIASTINUM: Unremarkable. LUNGS: Clear. No infiltrate or pulmonary edema. PLEURAL SPACE: No pleural effusion or pneumothorax. BONE:Unremarkable for age. SOFT TISSUES: Unremarkable. IMPRESSION: No acute abnormality. DATA REPOSITORY: RADIATION DOSE DELIVERED:
--- NOTE | 2024-05-06 06:15 | DI.RAD_ITS ---
Exam(s) XR LUMBAR SPINE COMPLETE EXAM: XR LUMBAR SPINE COMPLETE CLINICAL HISTORY: low back pain,m54.50. TECHNIQUE: 2D digital imaging was performed. Five views. COMPARISON: CT CT CHEST PE CTA from 10/23/2019 CR XR CHEST 2V PA LATERAL from 08/03/2023 CR XR CHEST 2V PA LATERAL from 10/30/2023 CR XR CHEST 2V PA LATERAL from 05/06/2024 FINDINGS: BONES: No acute fracture or destructive lesion. Stable moderate T12 compression fracture. Laminect devon defects at L4 and L5. DISKS: Severe narrowing of the T12-L1 through L3-4 disc spaces. Prominent endplate osteophytes and sclerosis. Degenerative changes are seen to a lesser extent at L4-5 and L5-S1. There prominent fac et joint degenerative changes. There is apparent prior posterior fusion. ALIGNMENT: Degenerative mild spondylolisthesis at L4-5. SOFT TISSUE: Aortic calcification. IMPRESSION: Advanced degenerative changes. Postsurgical changes at L4-L4 and L5. Stable moderate T12 compression fracture. DATA REPOSITORY: RADIATION DOSE DELIVERED:
--- NOTE | 2024-05-06 06:15 | DI.RAD_ITS ---
Exam(s) XR HIP RT COMPLETE AP PELVIS EXAM: XR HIP RT COMPLETE AP PELVIS CLINICAL HISTORY: rt hip pain,m25.551. TECHNIQUE: 2D digital imaging was performed. Two views COMPARISON: No exams were available for comparison FINDINGS: BONES: No acute fracture is present. No bony destructive lesion is seen. Advanced degenerative change s are noted in the lower lumbar spine. JOINTS: No dislocation present. Joint spaces are maintained. There is mild periarticular spurring. Now there are moderate degenerative changes of the sacroiliac joints. Pubic symphysis unremarkable SOFT TISSUE: Normal. IMPRESSION: Mild degenerative changes of the hips. DATA REPOSITORY: RADIATION DOSE DELIVERED:
== END 2024-05-06 01:12 ==
LOC: DI 00:52
PROVIDERS: PCP Family Medicine; Visit Provider Family Medicine
DX: M43.16 Spondylolisthesis, lumbar region (principal); R05.3 Chronic cough; M16.0 Bilateral primary osteoarthritis of hip
CPT/HCPCS: 71046; 72110; 73502

== ENCOUNTER 2024-05-08 12:49 | Emergency (ER) | payer MEDICARE, SELFPAY ==
[2024-05-08] VITALS (18 sets, daily range): BP systolic 110–156; BP diastolic 39–65; PULSE 60–67; RESP 9–21; TEMP 35.9–36.3; O2SAT 94–98
--- NOTE | 2024-05-08 12:45 | RT.EKG_ITS ---
APPROVED REPORT Exam: Resting ECG Reason for Exam: syncope Patient Location: E HR:58 bpm ECG Measurements Heart Rate 58 AXIS CA 215 P 55 QRSd 85 QRS 36 QT 449 T -13 QTc 444 Conclusion Sinus bradycardia...rate< 60 Borderline prolonged CA interval...CA >212, V-rate 50- 90
--- NOTE | 2024-05-08 13:00 | DI.RAD_ITS ---
Exam(s) XR PORTABLE CHEST AP EXAM: XR PORTABLE CHEST AP CLINICAL HISTORY: vomiting, med reaction TECHNIQUE: 2D digital imaging was performed. COMPARISON: CR XR CHEST 2V PA LATERAL from 10/30/2023 CR XR CHEST 2V PA LATERAL from 05/06/2024 FINDINGS: LUNGS: Clear. No pleural abnormality seen. HEART: Normal size. AORTA: Normal diameter. BONES: Unremarkable for age. Soft tissues: Unremarkable. IMPRESSION: No acute findings. DATA REPOSITORY: RADIATION DOSE DELIVERED:
[2024-05-08] MEDS: Naloxone 0.4 MG/ML VIAL IVP (13:14)
[2024-05-08] MEDS: Ondansetron 4 MG/2 ML VIAL IVP (13:15)
[2024-05-08 13:49] LABS: Abs Immature Grans 0.02 10^3/uL (0.0-0.06); Absolute Basophil Count 0.03 10^3/uL (0.0-0.2); Absolute Eosinophil Count 0.17 10^3/uL (0.0-0.7); Absolute Lymphocyte Count 1.74 10^3/uL (1.2-3.4); Absolute Neutrophil Count 5.52 10^3/uL (1.2-6.7); Basophils % 0.4 %; Eosinophils % 2.2 %; HCT 34.8 % (36.0-46.0); HGB 11.9 g/dL (11.2-15.7); Immature Grans % 0.3 %; Lymphocytes % 22.1 %; MCH 31.4 pg (27.0-33.0); MCHC 34.2 % (32.0-36.0); MCV 92 fL (80-95); Monocytes % 5.1 %; Neutrophils % 69.9 %; Platelet Count 250 10^3/uL (130-400); RBC 3.79 10^6/uL (3.93-5.22); RDW 11.8 % (11.7-14.6); RDW-SD 39.3 fL; WBC 7.88 10^3/uL (4.4-10.8)
[2024-05-08 14:13] LABS: ALT 46 U/L (14-59); AST 77 U/L (15-37); Albumin 3.8 g/dL (3.4-5.0); Alkaline Phosphatase 82 U/L (46-116); Anion Gap 10.4 mmol/L (3-11); BUN 24 mg/dL (7-18); Bilirubin, Total 0.42 mg/dL (0.2-1.0); CO2 25.6 mmol/L (21.0-32.0); CREATININE 1.1 mg/dL (0.55-1.02); Calcium 9.3 mg/dL (8.5-10.1); Chloride 103 mmol/L (98-107); Estimated GFR 50.48 (mL/min/1.73m2); Glucose 129 mg/dL (74-106); Potassium 3.9 mmol/L (3.5-5.1); Sodium 139 mmol/L (136-145); Total Protein 7.1 g/dL (6.4-8.2); Troponin I 4 ng/L (<or=51)
[2024-05-08] MEDS: Ondansetron O.D.T. 4 MG TABEF, 3 TABS/BTL PO (14:58)
--- NOTE | 2024-05-08 15:52 | ED.GENADUL_ITS ---
Discharge Plan Disposition Patient Disposition: Home Condition: Stable Discharge Details Clinical Impression: Adverse effect of buprenorphine Primary Care Provider: Andrzej You ED Provider: Lisa Cordoba Home Meds and New Rx's Prescriptions: Continued ipratropium bromide 0.02 % solution 2.5 ml IH QID PRN (Reason: shortness of breath or wheezing) Qty: 120 2RF albuterol sulfate 2.5 mg /3 mL (0.083 %) solution for nebulization 2.5 mg Inhalation Q 4 HR PRN Qty: 120 2RF carbidopa-levodopa 25-100 mg tablet 1 tab PO QHS Qty: 90 3RF budesonide 0.5 mg/2 mL suspension for nebulization 0.5 mg IH BID Qty: 360 3RF Patient Comments: pt reports last used 2 months ago. lisinopril-hydrochlorothiazide 20-25 mg tablet 1 tab PO DAILY Qty: 90 4RF Rx Instructions: 20 MG/25 MG DAILY fluoxetine [Prozac] 20 mg capsule 20 mg PO DAILY Qty: 90 4RF Rx Instructions: 1 CAP DAILY simvastatin 40 mg tablet 40 mg PO HS Qty: 90 4RF Rx Instructions: 1 TAB HS levothyroxine 88 mcg tablet 88 mcg PO DAILY Qty: 90 4RF Rx Instructions: note dose increase buprenorphine HCl 2 mg tablet, sublingual 2 mg sublingual BID Qty: 180 1RF Rx Instructions: start once/day for one week Probiotic 3 billion cell Capsule 2 cell PO DAILY Rx Instructions: 2 capsules daily Discharge Instructions Instructions: Adverse Drug Reactions, Adult (DC) Additional Instructions: Take Zofran as needed for nausea and vomiting Please increase fluids, rest, and refrain from taking this medication in future Please follow-up with your doctor for further management of discomfort Clear liquid diet as tolerated this evening Return with worsening shortness of breath, nausea, vomiting, or should any new concerns arise Referrals: Andrzej You MD [Primary Care Provider] - 1 day HPI General Date/Time Provider Initiated Documentation: 05/08/24 13:05 . HPI Narrative: This 79-year-old female with history of Parkinson's, chronic pain COPD, thyroid disease. Patient is presenting secondary to taking a first dose of buprenorphine and 50 minutes later developing nausea, fatigue, and vomiting. She has started taking this medication for pain. Patient received a dose of Zofran and was reporting mild improvement in symptoms. Glucose within normal limits en route per EMS. Maintaining airway per EMS. Denies any additional complaints at this time. Related Data Home Medications ?Medication ?Instructions ?Recorded ?Confirmed albuterol sulfate 2.5 mg/3 mL 2.5 mg (3 mL) inhalation Q 4 HR 10/22/19 05/08/24 (0.083 %) solution for nebulization PRN #120 vials ipratropium bromide 0.02 % 2.5 ml inhalation QID PRN 10/22/19 05/08/24 solution for inhalation shortness of breath or wheezing #120 vials budesonide 0.5 mg/2 mL suspension 0.5 mg (2 mL) inhalation BID #360 07/11/21 05/08/24 for nebulization mL lactobacillus combination no.4 3 2 cell PO DAILY 10/02/22 05/08/24 billion cell capsule (Probiotic) carbidopa 25 mg-levodopa 100 mg 1 tab PO QHS #90 tab-caps 04/24/23 05/08/24 tablet fluoxetine 20 mg capsule (Prozac) 20 mg PO DAILY #90 tab-caps 09/03/23 05/08/24 levothyroxine 88 mcg tablet 88 mcg PO DAILY #90 tab-caps 09/03/23 05/08/24 lisinopril 20 1 tab PO DAILY #90 tab-caps 09/03/23 05/08/24 mg-hydrochlorothiazide 25 mg tablet simvastatin 40 mg tablet 40 mg PO HS #90 tab-caps 09/03/23 05/08/24 buprenorphine HCl 2 mg sublingual 2 mg sublingual BID #180 tabs 04/30/24 05/08/24 tablet Previous Rx's ?Medication ?Instructions ?Recorded albuterol sulfate 2.5 mg/3 mL 2.5 mg (3 mL) inhalation Q 4 HR 10/22/19 (0.083 %) solution for nebulization PRN #120 vials ipratropium bromide 0.02 % 2.5 ml inhalation QID PRN 10/22/19 solution for inhalation shortness of breath or wheezing #120 vials budesonide 0.5 mg/2 mL suspension 0.5 mg (2 mL) inhalation BID #360 07/11/21 for nebulization mL carbidopa 25 mg-levodopa 100 mg 1 tab PO QHS #90 tab-caps 04/24/23 tablet fluoxetine 20 mg capsule (Prozac) 20 mg PO DAILY #90 tab-caps 09/03/23 levothyroxine 88 mcg tablet 88 mcg PO DAILY #90 tab-caps 09/03/23 lisinopril 20 1 tab PO DAILY #90 tab-caps 09/03/23 mg-hydrochlorothiazide 25 mg tablet simvastatin 40 mg tablet 40 mg PO HS #90 tab-caps 09/03/23 buprenorphine HCl 2 mg sublingual 2 mg sublingual BID #180 tabs 04/30/24 tablet Allergies Allergy/AdvReac Type Severity Reaction Status Date / Time prednisone AdvReac pounding Verified 05/08/24 13:01 headache General Stated Complaint: [facility]Medical AMBER: 3 Exam Narrative Exam Narrative: 79-year-old female, nauseous with 1 episode of vomiting in the emergency department, pupils equal round reactive Your mentation, oropharynx patent, uvula midline, no obvious respiratory distress dress, hypoxia, 76%, cardiac rate rhythm regular, speaking complete sentences, alert and oriented x 3 Course Vital Signs Vital signs: Vital Signs Pulse Oximetry 95 05/08/24 12:50 Temperature 35.9 C L 05/08/24 15:02 Temperature Source Temporal Artery Scan 05/08/24 12:53 Pulse 66 05/08/24 15:02 Pulse 67 05/08/24 14:16 Respiratory Rate 16 05/08/24 15:02 Blood Pressure 156/60 H 05/08/24 15:02 Blood Pressure Mean 81 05/08/24 14:16 Blood Pressure Position Sitting 05/08/24 12:53 Pulse Oximetry 98 05/08/24 15:02 Oxygen Delivery Method Nasal Cannula 05/08/24 13:54 Oxygen Flow Rate 1 05/08/24 13:54 Pain Level 0 05/08/24 15:02 Lab/Test Results Lab/Test Results: Laboratory Tests Range/Units 05/08/24 13:40 WBC (4.4-10.8) 10^3/uL 7.88 RBC (3.93-5.22) 10^6/uL 3.79 L Hgb (11.2-15.7) g/dL 11.9 Hct (36.0-46.0) % 34.8 L MCV (80-95) fL 92 MCH (27.0-33.0) pg 31.4 MCHC (32.0-36.0) % 34.2 RDW (11.7-14.6) % 11.8 Plt Count (130-400) 10^3/uL 250 MPV (8.0-11.0) fL 9.0 Immature Gran % % 0.3 Neutrophils % % 69.9 Lymphocytes % % 22.1 Monocytes % % 5.1 Eosinophils % % 2.2 Basophils % % 0.4 Nucleated RBC % (0.0-0.3) % 0.0 Absolute Neutrophils (1.2-6.7) 10^3/uL 5.52 Absolute Lymphocytes (1.2-3.4) 10^3/uL 1.74 Absolute Monocytes (0.1-0.8) 10^3/uL 0.40 Absolute Eosinophils (0.0-0.7) 10^3/uL 0.17 Absolute Basophils (0.0-0.2) 10^3/uL 0.03 Sodium (136-145) mmol/L 139 Potassium (3.5-5.1) mmol/L 3.9 Chloride (98-107) mmol/L 103 Carbon Dioxide (21.0-32.0) mmol/L 25.6 Anion Gap (3-11) mmol/L 10.4 BUN (7-18) mg/dL 24 H Creatinine (0.55-1.02) mg/dL 1.1 H Est GFR (CKD-EPI 2020) (mL/min/1.73m2) 50.48 Glucose (74-106) mg/dL 129 H Calcium (8.5-10.1) mg/dL 9.3 Total Bilirubin (0.2-1.0) mg/dL 0.42 AST (15-37) U/L 77 H ALT (14-59) U/L 46 Alkaline Phosphatase (46-116) U/L 82 Troponin I (<or=51) ng/L 4 Total Protein (6.4-8.2) g/dL 7.1 Albumin (3.4-5.0) g/dL 3.8 Medical Decision Making 79-year-old female adverse effect versus overdose on buprenorphine. Given 0.4 of Narcan and 4 mg of Zofran with good effect. No hypoxia at time of reassessment observed for approximately 2 hours, 96% on room air ambulatory with steady gait without hypoxia, nausea has resolved after Zofran administration. Patient is requesting discharge home at this time, no evidence of anaphylaxis clinically and given that patient was responsive to Narcan and Zofran low suspicion for buprenorphine allergy. Patient will not resume this medication and she will talk to her doctor about alternatives for pain. Discharged home in stable condition with stable vitals. Quality:SDOH Health Related Social Needs: No Data to Display PFSH All Active Problems (Updated 05/08/24 @ 14:51 by ABIMBOLA Hernandez) Adverse effect of buprenorphine (Acute) Low back pain (Acute) Left knee pain (Acute) Sleep disturbance (Acute) Cataracts, bilateral (Acute) Rib pain on right side (Acute) GERD (gastroesophageal reflux disease) (Chronic) ILD (interstitial lung disease) (Acute) Asthma (Chronic) Abnormal chest CT (Acute) Facial rash (Acute) Arthralgia (Acute) Facial cellulitis (Acute) Ground glass opacity present on imaging of lung (Acute) Left breast lump (Acute) Lung nodules (Acute) Night sweats (Acute) Breast lump in upper outer quadrant (Acute) Periorbital dermatitis (Acute) Nasal congestion (Acute) Fatigue (Acute) Bronchospasm (Acute) Cough present for greater than 3 weeks (Acute) Idiopathic Parkinson's disease (Acute) Chronic pain syndrome (Acute 04/10/17) Surgical History Hx of cataract removal with insertion of prosthetic lens bilateral 09/28-10/29 History of sinus surgery Per pt. stated she doesn't know what it is called but stated they went in and made windows, it was one in the early nasal polypectomy x 2 knee repair left Stent placement per pt. denies PROCEDURES SPINAL STRUCT REPAIR NEC spinal stenosis Hysterectomy, Laproscopic partial; fibroid Cholecystectomy Appendectomy Family History Mother , 91 Heart disease Cancer Father , 79 Alcohol abuse Colon cancer Liver cancer Sister Premature Brother , 77 Dementia Brother , 81 No problems noted. Maternal Grandfather , 50 Heart disease Neoplasm Paternal Grandfather Stomach cancer Maternal Grandmother , 70s Stroke Heart disease Paternal Grandmother , CHILDBIRTH at age 37. No problems noted. Daughter Depression Paternal Family History Neoplasm BRAIN Social History (Updated 04/26/23 @ 08:13 by Annmarie Bansal) Smoking/Tobacco Use Status: Former Tobacco Use tobacco type: cigarettes Quit Date: 07/09/1959 Tobacco: How many years used: 2 Second Hand Exposure: Yes Smoking risk assessment performed?: Yes Alcohol Intake: never Drug use: Never Substance use type: does not use Counseling given: No Adopted: No Caregiver/Support person: No Foster care: No Household members: significant other Housing: house Number of Children: 2 number of grandchildren: 2 Communication Needs: None Education Level: college Do you need help understanding health information?: Rarely Pets and animals: No Do you think of yourself as: straight/heterosexual Current gender identity: female What is your relationship status?: living with partner How often do you talk on the phone with friends or family?: once per week How often do you get together with friends or relatives?: decline to answer How often do you attend oriental orthodox or orthodoxy services?: decline to answer Do you belong to any clubs or organized social groups?: no Panel score (0-1 are the most socially isolated patients): 1 What type of physical activity do you participate in: other Details: Housekeeping,sitting excercises Frequency: daily Earnestine/Mormonism: Uatsdin Special earnestine needs: No Agree to transfusion: Yes Seatbelt use: always Helmet use: Yes Helmet use: always Drive intox or ride w/intox crew car driver: No Working smoke detector in home: Yes Carbon monox detector in home: No Firearms in home: Yes Do you feel safe at home: Yes Do you feel safe in your relationship?: Yes Victim of physical abuse: No Victim of emotional abuse: No Victim of sexual abuse: No Would you like helpful sources: No Additional Social history: Unable to assess daly
== END 2024-05-08 15:04 | disposition home or self-care (01) ==
PROVIDERS: Emergency Provider Physician Assistant; PCP Family Medicine
DX: R11.2 Nausea with vomiting, unspecified (principal); R42 Dizziness and giddiness; R07.9 Chest pain, unspecified; T40.495A Adverse effect of other synthetic narcotics, initial encounter; G89.29 Other chronic pain; G20.A1 Parkinson's disease without dyskinesia, without mention of fluctuations; J44.9 Chronic obstructive pulmonary disease, unspecified; Z87.891 Personal history of nicotine dependence
CPT/HCPCS: 36415; 80053; 93005; 96374; 96375; 99284; 71045; 84484; 85025; 93010; J2310; J2405

== ENCOUNTER 2025-01-23 00:21 | Outpatient (CLI) | payer MEDICARE, SELFPAY ==
--- NOTE | 2025-01-23 09:03 | DI.RAD_ITS ---
Exam(s) XR CHEST 2V PA LATERAL EXAM: XR CHEST 2V PA LATERAL CLINICAL HISTORY: dry cough,chronic,r05.3. TECHNIQUE: 2D digital imaging was performed. COMPARISON: CR XR LUMBAR SPINE COMPLETE from 05/06/2024 CR XR PORTABLE CHEST AP from 05/08/2024 FINDINGS: 2 views: Heart size is normal. The mediastinum is not widened. Left lung is clear. However, there is a nodular infiltrate in the mid right lung field which was not evident on 05/08/2024. This measures approximately 2.8 x 1.2 cm. No pleural effusions. There is a compression fracture of T12 vertebral body which was evident on plain films of 05/06/2024. Does not exhibit further height loss IMPRESSION: Right midlung nodular infiltrate. Recommend follow-up chest CT scan. DATA REPOSITORY: RADIATION DOSE DELIVERED:
== END 2025-01-23 00:41 ==
LOC: DI 00:21
PROVIDERS: PCP Family Medicine; Visit Provider Family Medicine
DX: R05.3 Chronic cough (principal); R91.8 Other nonspecific abnormal finding of lung field
CPT/HCPCS: 71046

== ENCOUNTER 2025-01-27 08:13 | Outpatient (CLI) | payer MEDICARE, SELFPAY ==
[2025-01-27 12:58] LABS: Estimated GFR 56.60 (mL/min/1.73m2)
[2025-01-27] MEDS: Normal Saline - Diluent 50 ML VIAL IJ (13:22)
[2025-01-27] MEDS: Omnipaque 350 MG/ML 100 ML BTL IJ (13:22)
--- NOTE | 2025-01-27 13:35 | DI.CT_ITS ---
Exam(s) CT CHEST W EXAM: CT CHEST W CLINICAL HISTORY: F/U ABNL XR,SOLITARY PULMONARY NODULE,NODULAR INFILTRATE TECHNIQUE: Imaging Protocol: Axial computed tomography images with coronal and sagittal reformatted images were created and reviewed. Computer aided detection (CAD) was utilized. CONTRAST MATERIAL: Intravenous: Omnipaque 350 Contrast volume:70 ml. COMPARISON: CT CT CHEST WO from 05/07/2023 CR XR PORTABLE CHEST AP from 05/08/2024 CR XR CHEST 2V PA LATERAL from 01/23/2025 FINDINGS: Pulmonary parenchyma: No consolidation. No dominant measurable mass. Stable 5 millimeter nodule right upper lobe. Bilateral areas of linear scarring, greater in the right middle lobe and lingula.. Tracheobronchial tree: No bronchiectasis or mucous plugging. Mediastinum and Mary Jo: No dominant adenopathy or fluid collection. Pleura: No effusion. No pneumothorax. Heart: The heart is not dilated. Minimal coronary artery calcifications are seen. Mitral annular calcification. Aorta: Thoracic aorta non-dilated. Minimal atherosclerotic changes. Pulmonary arteries: No gross evidence of emboli. Upper abdomen: No acute findings. Bones: Degenerative changes in the spine. Soft tissues: Unremarkable. IMPRESSION: No evidence of a suspicious mass. Stable appearance of bilateral multifocal areas of linear scarring. RADIATION DOSE DELIVERED: 171.51mGy.cm Total DLP DATA REPOSITORY: All CT scans at this facility are submitted to the National Radiology Data Registry (NRDR) Dose Index Registry (DIR) with the [employer] (A[employer]). RADIATION OPTIMIZATION: All CT scans at this facility use at least one of these dose optimization techniques: automated exposure control; mA and/or kV adjustment per patient size (includes targeted exams where dose is matched to clinical indication); or iterative reconstruction.
== END 2025-01-27 08:33 ==
LOC: DI 08:13
PROVIDERS: PCP Family Medicine; Visit Provider Family Medicine
DX: Z01.818 Encounter for other preprocedural examination (principal); R91.8 Other nonspecific abnormal finding of lung field
CPT/HCPCS: 71260; 82565; J3490